=== PATIENT | male | born 1945 | race Caucasian/White ===

== ENCOUNTER 2019-07-09 09:58 | Inpatient (IN) | payer OTHER ==
[2019-07-09] MEDS ORDERED: Enoxaparin Sodium 40 MG/0.4 ML SYRINGE SC SCH (13:36)
[2019-07-09] MEDS ORDERED: Sodium Chloride 0.9% 1,000 ML IV SCH (13:36)
[2019-07-09] MEDS ORDERED: Benzonatate 100 MG CAP PO PRN (13:36)
[2019-07-09] MEDS ORDERED: Ondansetron ODT 4 MG TAB PO PRN (13:36)
[2019-07-09] MEDS ORDERED: Ondansetron PF 4 MG/2 ML Vial IVP PRN (13:36)
[2019-07-09] MEDS: Azithromycin 500 MG in Sodium Chloride 0.9% 250 ML 250 ML IVPB SCH (14:31)
[2019-07-09] MEDS: Ipratropium Oral Inhaler INH SCH ×2 (14:34→22:39)
--- NOTE | 2019-07-09 16:24 | CON ---
DATE OF CONSULTATION: 07/09/2019 REASON FOR CONSULTATION: Possible COVID-19 infection with pneumonia. HISTORY OF PRESENT ILLNESS: This is a 73-year-old male, who presented from the [facility] in [place] with shortness of breath for 3 to 4 days prior to admission. Although, he denies fever. Fever is mentioned in the ER note in the chart. There is no fever documented in the ER with his vital signs. COVID-19 infection has been known to be circulating to the patient's present unit. PAST MEDICAL HISTORY: 1. Stroke in 2013. 2. Hypertension. 3. Hyperlipidemia. 4. COPD. PAST SURGICAL HISTORY: He has had appendectomy. SOCIAL HISTORY: The patient smoked in the past. Does not consume alcohol. Lives in the [facility]. ALLERGIES: NONE. PHYSICAL EXAMINATION: VITAL SIGNS: Temperature 97.6; pulse 83; blood pressure 105/64; and O2 saturation generally in the 90s on 20 L face mask. GENERAL: He is in no acute distress. HEENT: Has a disheveled appearance with a webb. NECK: No adenopathy or JVD. LUNGS: Some inspiratory crackles in the bases. CARDIOVASCULAR: S1 and S2, somewhat irregular. Looks junctional at times. Other times, a CP wave. EXTREMITIES: Without clubbing, cyanosis, or edema. IMAGING DATA: His chest x-ray shows some subtle bibasilar infiltrates. LABORATORY DATA: White blood cell count 9.7, hematocrit 31.1, and platelet count 189. Sodium 130, potassium 4, chloride 100, CO2 of 21, BUN 38, creatinine 2.1, glucose 109, albumin 2.7, AST 43, and ALT 20. CPK 499, troponin 0.09. INR 1.1. ASSESSMENT: Pneumonia, possibly the COVID-19 versus congestive heart failure given high BNP and previous cardiac history. PLAN: 1. Await results of COVID-19 testing. 2. Echocardiogram after the COVID-19 test is back. 3. Convert over to high-flow nasal cannula. Job ID: [id number]
[2019-07-09] MEDS ORDERED: Fluticasone Propionate HFA 110 MCG AER INH SCH (18:30)
--- NOTE | 2019-07-09 19:29 | HP ---
PRIMARY CARE PROVIDER: [facility]. CHIEF COMPLAINT: Shortness of breath. HISTORY OF PRESENT ILLNESS: This is a 73-year-old male, who presents to [facility] in transfer from [facility], where the patient presented with increased shortness of breath and fever up to 100.7 degrees Fahrenheit. The patient received Tylenol x1 gram, in addition was placed on a 100% non-rebreather at 15 L/minute. The patient was initially hypoxic in the 84% range, increasing into the low 90s with a non-rebreather. The patient was placed on respiratory and droplet precautions due to concern for potential COVID exposure. In the emergency room, the patient underwent portable chest x-ray imaging showing multifocal bibasilar infiltrates. The patient received IV Levaquin 750 mg x1 dose in addition to Lovenox 100 mg subcutaneously x1. The patient was subsequently transferred to [facility] directly to the Critical Care Unit. The patient admits to symptoms of increased shortness of breath with productive sputum over the last 3 to 4 days. The patient denied any brandi fever or fever documented prior to admission. No history of travel, but is an inmate in the [email or web address]. The patient denied any dysuria or diarrhea. No sore throat or abdominal discomfort. PAST MEDICAL HISTORY: 1. Hypertension. 2. Chronic obstructive pulmonary disease. 3. Hepatitis C. 4. Anemia on chronic kidney disease. 5. Chronic kidney disease stage 3. 6. History of CVA. 7. Benign prostatic hyperplasia. PAST SURGICAL HISTORY: Status post appendectomy. CURRENT MEDICATIONS: 1. Amlodipine 10 mg p.o. daily. 2. Atenolol 50 mg p.o. daily. 3. Atrovent HFA 17 mcg inhaled daily. 4. Calcium carbonate 500 mg p.o. daily. 5. Plavix 75 mg p.o. daily. 6. Flovent HFA 110 mcg inhaled daily. 7. Lasix 20 mg p.o. daily. 8. Potassium chloride 10 mEq p.o. daily. 9. Pravachol 40 mg p.o. at bedtime. 10. Terazosin 2 mg p.o. daily and 5 mg p.o. at bedtime. ALLERGIES: CEPHALOSPORINS. FAMILY HISTORY: No inheritable diseases per the patient report. SOCIAL HISTORY: Incarcerated in the [email or web address]. No current alcohol, tobacco, or illicit drug use. REVIEW OF SYSTEMS: CONSTITUTIONAL: Negative for weight loss or gain, ability to conduct usual activities. SKIN: Negative for rash, itching. EYES: Negative for double vision, pain. ENT/MOUTH: Negative for nose bleeding, neck stiffness, pain, tenderness. CARDIOVASCULAR: Negative for palpitations, dyspnea on exertion, orthopnea. RESPIRATORY: Negative for shortness of breath, wheezing, cough, hemoptysis, fever or night sweats. GASTROINTESTINAL: Negative for poor appetite, abdominal pain, heartburn, nausea, vomiting, constipation, or diarrhea. GENITOURINARY: Negative for urgency, frequency, dysuria, nocturia. MUSCULOSKELETAL: Negative for pain, swelling. NEUROLOGIC/PSYCHIATRIC: Negative for anxiety, depression. ALLERGY/IMMUNOLOGIC: Negative for skin rash, bleeding tendency. Otherwise negative except as stated per HPI. PHYSICAL EXAMINATION: VITAL SIGNS: Blood pressure 106/64, pulse 88, respiratory rate 33, temperature 97.6 degrees Fahrenheit, and O2 saturation 93% on high-flow nasal cannula. GENERAL APPEARANCE: This is a 73-year-old male, alert, ill-appearing, tachypneic, lying on the bed. HEENT: Pupils are equal, round, and reactive to light and accommodation. Extraocular muscles are intact. No scleral icterus. No conjunctival injection. Nares patent. OP is clear. High-flow nasal cannula in place. NECK: Supple. No cervical adenopathy. No thyromegaly. No carotid bruits. No JVD appreciated. Cervical spine with full active and passive range of motion. No meningeal signs noted. CHEST: Diminished air flow bilaterally with occasional expiratory wheeze and rhonchi. Positive tachypnea and accessory muscle use. ABDOMEN: Obese, soft, nontender, and nondistended. Bowel sounds are positive in all 4 quadrants. There is no hepatosplenomegaly. No abdominal bruits. No rebound or guarding appreciated. EXTREMITIES: Warm and dry with fair turgor. No clubbing, cyanosis, or asymmetric edema appreciated. Pulses palpable distally at the dorsalis pedis, posterior tibial, and popliteal arteries bilaterally. Capillary refill less than 2 seconds. NEUROLOGIC: Cranial nerves 2 through 12 are grossly intact. No focal or lateralizing signs appreciated. PERTINENT LABORATORY AND X-RAY FINDINGS: Metabolic profile; sodium 134, potassium 4.0, chloride 100, CO2 of 21, glucose 109, BUN 38, and creatinine 2.1. Estimated GFR of 33. BNP 1140. CBC showed a white blood cell count of 9.7, hemoglobin 10.4, hematocrit 31, platelet count 189 with normal differential. AST 43, ALT of 20, alkaline phosphatase 48, total CK 499, troponin I 0.09. PT 11.4, INR 1.1. Portable chest x-ray dated on 07/09/2019, showed multifocal bibasilar infiltrates. Telemetry monitoring showed a sinus rhythm with heart rates in the 80s to 90s. ASSESSMENT AND PLAN: 1. Acute hypoxic respiratory failure. The patient will be admitted to the Critical Care Unit. Exact etiology unclear, however, suspicion for COVID-19 remains. Continue high-flow oxygen via nasal cannula and to maintain O2 saturations greater than or equal to 88%. COVID-19 PCR pending. Continue aggressive pulmonary supportive management. Bronchodilator therapy with albuterol metered-dose inhalers. 2. Bilateral pneumonia, suspected due to COVID-19. We will continue respiratory and droplet isolation. Zithromax 500 mg IV daily. Initiate trial of remdesivir with approval from Infectious Disease and Pulmonary Critical Care Service. 3. Chronic obstructive pulmonary disease. Questionable exacerbation due to bilateral pneumonia. We will continue bronchodilator therapy. Oxygen support with high-flow nasal cannula. Continue Zithromax 500 mg IV daily. 4. Acute kidney injury on chronic kidney disease. Avoid nephrotoxic agents and limit contrast exposure. Continue intravenous normal saline at 100 mL/h. Repeat creatinine in the a.m. 5. Hypertension. Relative hypotension currently. Hold home blood pressure regimen and monitor clinical response. 6. Prophylaxis. SCDs while in bed. Pepcid 20 mg p.o. b.i.d. Respiratory and droplet isolation. CODE STATUS: Full. Surrogate medical decision maker not identified. Job ID: [id number]
[2019-07-09] MEDS: Terazosin HCl 5 MG CAP PO SCH (19:51)
[2019-07-09] MEDS: Famotidine/PF 20 mg/2ml Vial SLOW IVP SCH (19:51)
[2019-07-09 20:31] LABS: Actual Bicarbonate (HCO3a) 15.2 mEq/L (22-28); Base Excess (BEa) -6.8 mEq/L (-2.0 to +3.0); Calcium, Ionized 1.07 mmol/L (1.12-1.30); Carboxyhemoglobin (COHb) 0.6 gm% (0.0-3.0); Hemoglobin (Hb) 11.8 g/dL (14.0-18.0); Potassium - ABG Lab 3.96 mmol/L (3.70-5.30); pH, Arterial 7.46 (7.35-7.45)
[2019-07-09 20:33] LABS: CO2 Tension 21.8 mmHg (35.0-45.0); O2 Tension (PaO2), arterial 52.1 mmHg (> 70.0); Puncture Site RRA
[2019-07-09] MEDS ORDERED: Furosemide 40 MG/4 ML VIAL ONE (20:48)
[2019-07-09] MEDS ORDERED: Amiodarone 150 MG, Admixture Fee 1 EACH in Dextrose 5% in Water 100 ML IVPB SCH (21:15)
[2019-07-09] MEDS: Amiodarone 450 MG, Admixture Fee 1 EACH in Dextrose 5% in Water 250 ML IVPB SCH (21:21)
[2019-07-09] MEDS: Acetaminophen 500 MG TAB PO PRN (21:22)
[2019-07-09] MEDS ORDERED: Digoxin 0.5 MG/2 ML AMP ONE (22:22)
[2019-07-09] MEDS ORDERED: Digoxin 0.5 MG/2 ML AMP SLOW IVP SCH (22:30)
[2019-07-09] MEDS: Mometasone 100 MCG/PUFF (1 INHALER) INH SCH (22:39)
[2019-07-09] MEDS ORDERED: Albumin 25% 25 GM/100 ML BOT IVPB SCH (23:59)
[2019-07-10 04:32] LABS: ALT (SGPT) 16 U/L (8-55); AST (SGOT) 32 U/L (5-34); Albumin 3.1 g/dL (3.4-4.8); Alkaline Phosphatase 43 U/L (40-110); Anion Gap 19 mmol/L (10-20); BUN (Urea Nitrogen) 52 mg/dL (8.4-25.7); Bilirubin, Total 0.9 mg/dL (0.2-1.2); Calc. Creatinine Clearance 40 mL/min (70-130); Calcium 7.8 mg/dL (7.8-10.44); Carbon Dioxide 15 mmol/L (23-31); Chloride 106 mmol/L (98-107); Estimated GFR-MDRD 24; Globulin 3.5 g/dL (2.4-3.5); Glucose 139 mg/dL (83-110); Protein, Total 6.6 g/dL (5.8-8.1); Sodium 136 mmol/L (136-145)
[2019-07-10 04:52] LABS: Band 13 % (5-11); Hemoglobin 10.1 g/dL (14.0-18.0); Lymphocytes 30 % (21-51); MDiff Complete? YES; Mean Corpuscular HGB CONC 33.9 g/dL (32.0-36.0); Mean Corpuscular Hemoglobin 31.1 pg (27.0-31.0); Mean Corpuscular Volume 91.8 fL (78.0-98.0); Mean Platelet Volume 10.3 fL (7.4-10.4); Monocytes 1 % (0-10); Neutrophil 56 % (42-75); Platelet Count 133 thou/uL (130-400); Red Blood Cell (RBC) Count 3.26 mill/uL (4.70-6.10); Toxic Granulation SLIGHT; Vacuoles SLIGHT
[2019-07-10] MEDS: Amiodarone 450 MG, Admixture Fee 1 EACH in Dextrose 5% in Water 250 ML IVPB SCH ×2 (05:43→20:15)
--- NOTE | 2019-07-10 06:24 | PDOC.EVN ---
Event Note - Event Note Event Note: Nurse called in regards to pt's tachypnea. Per nursing staff pt had refused intubation at the [facility]. Pt is also in atrial fibillation with rapid ventricular response. I spoke with the pt in details if he does not wear the bipap or if he does not want intubation there is a good chance he will not make it if he continues to be tahcypenic. Pt then stated that he want everything to be done. Also spoke with guard to get pt's family member and they were unable to do until am.
[2019-07-10] MEDS ORDERED: Furosemide 40 MG/4 ML VIAL SLOW IVP SCH (08:15)
--- NOTE | 2019-07-10 08:36 | PRG ---
DATE OF SERVICE: 07/10/2019 TIME SPENT: 35 minutes of critical care time. SUBJECTIVE: The patient went into the atrial fibrillation with rapid ventricular response last night. His rate has been slowed by being placed on amiodarone drip. His hypoxemia worsened last night to the point where he is now on BiPAP therapy. OBJECTIVE: VITAL SIGNS: On exam, his temperature is 98.6, pulse 84, blood pressure 130/69, O2 saturation 96%. A 24-four intake 1166, output 575. HEENT: Unremarkable. NECK: No adenopathy or JVD. LUNGS: Scattered rales. CARDIAC: S1 and S2, now appear sinus. ABDOMEN: Soft. EXTREMITIES: No rashes. LABORATORY DATA: Sodium 136, potassium 4, chloride 106, CO2 of 15, anion gap is 15, BUN 52, creatinine 2.6, and glucose 139. Ferritin 2373. White blood cell count 12, hematocrit 29.9, and platelet count 133. ASSESSMENT: 1. Suspected COVID-19 pneumonia - test result is not back from the [facility]. 2. Possible recurrent heart failure. 3. Septicemia - grew out gram-positive cocci in clusters and gram-negative rods from culture at the [facility]. 4. Renal insufficiency. PLAN: 1. Continue BiPAP. 2. Continue amiodarone. 3. Add vancomycin and Levaquin for sepsis. The patient is allergic to cephalosporins. 4. Await COVID-19 test. If positive, then I would not hesitate to give him plasma, IL-6 inhibitor, and remdesivir if available. Job ID: [id number]
[2019-07-10] MEDS: Ipratropium Oral Inhaler INH SCH ×3 (08:54→17:37)
[2019-07-10] MEDS: Mometasone 100 MCG/PUFF (1 INHALER) INH SCH ×2 (08:54→17:37)
[2019-07-10] MEDS: Clopidogrel Bisulfate 75 MG TAB PO SCH (08:55)
[2019-07-10] MEDS: Amlodipine 10 MG TAB PO SCH (08:55)
[2019-07-10] MEDS: Famotidine/PF 20 mg/2ml Vial SLOW IVP SCH (08:55)
[2019-07-10] MEDS: Potassium Chloride 10 MEQ TAB PO SCH (08:56)
[2019-07-10] MEDS: Terazosin HCl 1 MG CAP PO SCH (08:56)
[2019-07-10] MEDS ORDERED: Furosemide 20 MG TAB PO SCH (09:00)
[2019-07-10] MEDS ORDERED: Non-Formulary Item 1 EACH (Terazosin Hcl [Terazosin Hcl] 2 MG) PO SCH (09:00)
[2019-07-10] MEDS ORDERED: Non-Formulary Item 1 EACH (Potassium Chloride [Potassium Chloride] 10 MEQ) PO SCH (09:00)
[2019-07-10] MEDS: Vancomycin HCl 1.75 GM in Sodium Chloride 0.9% 500 ML IVPB SCH (10:02)
[2019-07-10] MEDS ORDERED: Tocilizumab 400 MG in Sodium Chloride 0.9% 80 ML IV SCH (13:00)
[2019-07-10] MEDS: Azithromycin 500 MG in Sodium Chloride 0.9% 250 ML 250 ML IVPB SCH (13:57)
[2019-07-10] MEDS: Terazosin HCl 5 MG CAP PO SCH (22:17)
[2019-07-11 03:56] LABS: #Lymphocytes 1.3 thou/uL (1.20-3.40); #Monocytes 0.1 thou/uL (0.11-0.59); #Neutrophils 3.2 thou/uL (1.40-6.50); %Basophils 0.5 % (0.0-1.0); %Eosinophils 0.8 % (0.0-10.0); %Lymphocytes 28.5 % (21.0-51.0); %Monocytes 2.7 % (0.0-10.0); %Neutrophils 67.4 % (42.0-75.0); Hemoglobin 10.1 g/dL (14.0-18.0); Mean Corpuscular HGB CONC 33.6 g/dL (32.0-36.0); Mean Corpuscular Hemoglobin 31.4 pg (27.0-31.0); Mean Corpuscular Volume 93.5 fL (78.0-98.0); Mean Platelet Volume 9.8 fL (7.4-10.4); Platelet Count 176 thou/uL (130-400); RBC Distribution Width 15.2 % (11.5-14.5); Red Blood Cell (RBC) Count 3.21 mill/uL (4.70-6.10); White Blood Cell (WBC) Count 4.7 thou/uL (4.8-10.8)
[2019-07-11 04:19] LABS: ALT (SGPT) 17 U/L (8-55); AST (SGOT) 25 U/L (5-34); Alkaline Phosphatase 42 U/L (40-110); Anion Gap 14 mmol/L (10-20); BUN (Urea Nitrogen) 62 mg/dL (8.4-25.7); Bilirubin, Total 0.9 mg/dL (0.2-1.2); Calc. Creatinine Clearance 34 mL/min (70-130); Calcium 8.1 mg/dL (7.8-10.44); Carbon Dioxide 20 mmol/L (23-31); Chloride 108 mmol/L (98-107); Estimated GFR-MDRD 20; Globulin 3.5 g/dL (2.4-3.5); Glucose 116 mg/dL (83-110); Potassium 3.3 mmol/L (3.5-5.1); Protein, Total 6.5 g/dL (5.8-8.1); Sodium 139 mmol/L (136-145)
[2019-07-11] MEDS: Ipratropium Oral Inhaler INH SCH ×5 (06:33→22:30)
[2019-07-11] MEDS: Clopidogrel Bisulfate 75 MG TAB PO SCH (08:30)
[2019-07-11] MEDS: Potassium Chloride 10 MEQ TAB PO SCH (08:30)
[2019-07-11] MEDS: Famotidine/PF 20 mg/2ml Vial SLOW IVP SCH (08:30)
[2019-07-11] MEDS: Amlodipine 10 MG TAB PO SCH (08:31)
[2019-07-11] MEDS: Terazosin HCl 1 MG CAP PO SCH (08:32)
--- NOTE | 2019-07-11 08:34 | PRG ---
DATE OF SERVICE: 07/11/2019 35 minutes critical time. SUBJECTIVE: The patient remains on BiPAP. He is resting comfortably, had no acute complaints. OBJECTIVE: VITAL SIGNS: Temperature 98.1, pulse 87, blood pressure 97/62, O2 saturation 95% on 50% oxygen. Intake 1753, output 1349. HEENT: Unremarkable. NECK: No adenopathy or JVD. CHEST: Coarse rhonchi. CARDIOVASCULAR: S1 and S2. Somewhat irregular. He is on amiodarone drip. ABDOMEN: Soft. EXTREMITIES: No edema. LABORATORY DATA: White blood cell count 4.7, hematocrit 30, and platelet count 176. Sodium 139, potassium 3.3, chloride 108, CO2 of 20, BUN 62, creatinine 3.1, glucose 116. His x-ray shows continued bilateral infiltrates, although there seems to be some clearing compared to before. ASSESSMENT: 1. COVID-19 with pneumonia. 2. Acute respiratory failure requiring mechanical ventilation. 3. Worsening renal dysfunction. 4. Atrial fibrillation. PLAN: 1. Hold the Lasix for the current time. 2. Given the duration of atrial fibrillation and his concurrent COVID-19 infection, I will go ahead and anticoagulate the patient. 3. Decrease IPAP pressure. 4. He has received plasma and IL-6 inhibitor. He is not a candidate for remdesivir due to his renal dysfunction. Job ID: [id number]
[2019-07-11] MEDS: Apixaban 5 MG TAB PO SCH ×2 (08:35→20:37)
[2019-07-11] MEDS: Amiodarone 450 MG, Admixture Fee 1 EACH in Dextrose 5% in Water 250 ML IVPB SCH (10:17)
--- NOTE | 2019-07-11 11:07 | RAD ---
SINGLE VIEW OF THE CHEST: COMPARISON: 07/09/2019. HISTORY: Pneumonia. FINDINGS: A single view of the chest shows a normal-size cardiomediastinal silhouette. Increased interstitial lung markings are present. There are questionable [id number] infiltrates in the bilateral lower lob es. Small bilateral pleural effusions may also be present. IMPRESSION: Bilateral small pleural effusions and bilateral lower lobe infiltrates. POS: EAA
[2019-07-11] MEDS: Vancomycin HCl 1.75 GM in Sodium Chloride 0.9% 500 ML IVPB SCH (11:32)
--- NOTE | 2019-07-11 14:51 | PDOC.HOSPP ---
- Subjective Encounter Date: 07/11/19 Encounter Time: 14:45 Subjective: f/u for COVID-19 PNA on BiPAP NIMV receiving Levaquin/Vanc/Zithromax/ Solumedrol. States feeling a little better this afternoon. - Objective Vital Signs & Weight: Vital Signs (12 hours) Pulse Resp Pulse Ox 07/11/19 11:03 82 36 H 90 L 07/11/19 11:02 81 31 H 90 L 07/11/19 08:31 66 07/11/19 08:00 97 07/11/19 07:25 88 95 Weight Weight 246 lb 7.629 oz Most Recent Monitor Data Heart Rate from ECG 83 NIBP 106/56 NIBP BP-Mean 72 Respiration from ECG 34 SpO2 89 I&O: 07/10/19 07/11/19 07/12/19 06:59 06:59 06:59 Intake Total 1166 1753 620 Output Total 575 1349 485 Balance 591 404 135 Result Diagrams: 07/11/19 03:45 07/11/19 03:45 Additional Labs: Microbiology 07/09/19 07:45 Venous blood - Right Arm Blood Culture - Preliminary Coagulase Neg Staphylococcus Laboratory Tests 07/10/19 07/10/19 07/10/19 03:59 03:59 03:59 WBC 12.0 H Hgb 10.1 L Band Neuts % (Manual) 13 H D-Dimer BUN 52 H Creatinine 2.66 H Ferritin 2373.03 H B-Natriuretic Peptide 07/10/19 07/10/19 03:59 05:57 WBC Hgb Band Neuts % (Manual) D-Dimer 2.08 H BUN Creatinine Ferritin B-Natriuretic Peptide 242.2 H Radiology Reviewed by me: Yes (PCXR - bilat infiltrates) EKG Reviewed by me: Yes (Tele - A-fib in 80's) Hospitalist ROS - Medication Medications: Active Medications Generic Name Dose Route Start Last Admin Trade Name Freq PRN Reason Stop Dose Admin Acetaminophen 1,000 mg 07/09/19 13:36 07/09/19 21:22 Tylenol PO 1,000 mg Q6H PRN Administration Mild Pain (1-3) Amlodipine Besylate 10 mg 07/10/19 09:00 07/11/19 08:31 Norvasc PO 10 mg DAILY CORNELIO Administration Apixaban 5 mg 07/11/19 09:00 07/11/19 08:35 Eliquis PO 5 mg BID CORNELIO Administration Clopidogrel Bisulfate 75 mg 07/10/19 09:00 07/11/19 08:30 Plavix PO 75 mg DAILY CORNELIO Administration Famotidine 20 mg 07/11/19 09:00 07/11/19 08:30 Pepcid SLOW IVP 20 mg DAILY CORNELIO Administration Azithromycin 500 mg/ Sodium 250 mls @ 250 mls/hr 07/09/19 15:00 07/10/19 13: 57 Chloride IVPB 250 mls Q24HR CORNELIO Administration Amiodarone HCl 450 mg/ 259 mls @ 0 mls/hr 07/09/19 21:15 07/11/19 10:17 Miscellaneous Medication 1 IVPB 259 mls each/ Dextrose/Water INF CORNELIO Administration Protocol As Directed Levofloxacin 500 mg/ Device 100 mls @ 100 mls/hr 07/10/19 09:00 07/10/19 08: 59 IVPB 100 mls Q2D@0900 CORNELIO Administration Vancomycin HCl 1.75 gm/ Sodium 500 mls @ 250 mls/hr 07/10/19 10:00 07/11/19 11:32 Chloride IVPB 500 mls 1000 CORENLIO Administration Ipratropium [place] 2 puff 07/09/19 15:00 07/11/19 11:03 Atrovent Hfa INH 2 puff QID-RT CORNELIO Administration Mometasone Furoate 100 mcg 07/09/19 18:30 07/10/19 17:37 Asmanex Hfa 100 Mcg INH Not Given BID-RT CORNELIO Potassium Chloride 10 meq 07/10/19 09:00 07/11/19 08:30 Klor-Con 10 PO 10 meq DAILY CORNELIO Administration Sodium Chloride 10 ml 07/09/19 21:00 07/11/19 08:32 Flush - Normal Saline IVF 10 ml Q12HR CORNELIO Administration Terazosin HCl 5 mg 07/09/19 21:00 07/10/19 22:17 Hytrin PO 5 mg HS CORNELIO Administration Terazosin HCl 2 mg 07/10/19 09:00 07/11/19 08:32 Hytrin PO 2 mg QAM CORNELIO Administration - Exam General Appearance: awake alert General - other findings: dyspneic Eye: PERRL, anicteric sclera ENT: normocephalic atraumatic, no oropharyngeal lesions Neck: supple, symmetric, no JVD, no thyromegaly Heart: no gallops, no rubs, normal peripheral pulses, irregular Heart - other findings: S1, S2 Respiratory: tachypneic Respiratory - other findings: diminished in bases Gastrointestinal: soft, non-tender, non-distended, normal bowel sounds, no palpable masses Gastrointestinal - other findings: obese Extremities: no cyanosis, no clubbing, 1+ LE edema Skin: normal turgor, no lesions Neurological: cranial nerve grossly intact, no new deficit Musculoskeletal: normal tone, generalized weakness Psychiatric: normal affect, A&O x 3 Hosp A/P (1) Pneumonia due to COVID-19 virus Code(s): U07.1 - COVID-19; J12.89 - OTHER VIRAL PNEUMONIA Status: Acute Plan: Continue BiPAP NIMV, s/p plasma and IL-6 inhibitor, continue Zithromax/Levaquin/ Vancomycin (2) Acute respiratory failure with hypoxia Code(s): J96.01 - ACUTE RESPIRATORY FAILURE WITH HYPOXIA Status: Acute Plan: BiPAP NIMV, bronchodilators, Solumedrol (3) Acute kidney injury superimposed on CKD Code(s): N17.9 - ACUTE KIDNEY FAILURE, UNSPECIFIED; N18.9 - CHRONIC KIDNEY DISEASE, UNSPECIFIED Status: Acute Plan: Worsening renal function, avoid nephrotoxic meds and limit contrast (4) HTN (hypertension) Code(s): I10 - ESSENTIAL (PRIMARY) HYPERTENSION Status: Chronic Qualifiers: Hypertension type: essential hypertension Qualified Code(s): I10 - Essential (primary) hypertension - Plan continue antibiotics, social worker palliative care, respiratory therapy, DVT proph w/SCDs Continue pulmonary support BiPAP NIMV @ 45% FIO2 Albuterol MDI Continue Zithromax/Levaquin/Vancomycin Continue Solumedrol Clear liquids AM lab: CMP, CBC
[2019-07-11] MEDS: Azithromycin 500 MG in Sodium Chloride 0.9% 250 ML 250 ML IVPB SCH (15:10)
[2019-07-11] MEDS: methylPREDNISolone Sod Succ 40 MG VIAL IVP SCH ×2 (15:10→17:45)
[2019-07-11] MEDS: Terazosin HCl 5 MG CAP PO SCH (20:37)
[2019-07-11] MEDS: Mometasone 100 MCG/PUFF (1 INHALER) INH SCH ×2 (21:53→22:30)
[2019-07-12] MEDS: methylPREDNISolone Sod Succ 40 MG VIAL IVP SCH ×5 (00:40→23:58)
[2019-07-12 04:13] LABS: #Lymphocytes 1.3 thou/uL (1.20-3.40); #Monocytes 0.1 thou/uL (0.11-0.59); #Neutrophils 3.9 thou/uL (1.40-6.50); %Basophils 0.6 % (0.0-1.0); %Eosinophils 0.2 % (0.0-10.0); %Lymphocytes 23.4 % (21.0-51.0); %Monocytes 2.5 % (0.0-10.0); %Neutrophils 73.3 % (42.0-75.0); Hemoglobin 10.5 g/dL (14.0-18.0); Mean Corpuscular Hemoglobin 30.2 pg (27.0-31.0); Mean Corpuscular Volume 94.4 fL (78.0-98.0); Mean Platelet Volume 10.1 fL (7.4-10.4); Platelet Count 191 thou/uL (130-400); RBC Distribution Width 15.4 % (11.5-14.5); Red Blood Cell (RBC) Count 3.48 mill/uL (4.70-6.10); White Blood Cell (WBC) Count 5.4 thou/uL (4.8-10.8)
[2019-07-12 04:34] LABS: ALT (SGPT) 17 U/L (8-55); AST (SGOT) 20 U/L (5-34); Albumin 2.8 g/dL (3.4-4.8); Alkaline Phosphatase 45 U/L (40-110); Anion Gap 14 mmol/L (10-20); BUN (Urea Nitrogen) 72 mg/dL (8.4-25.7); Bilirubin, Total 0.7 mg/dL (0.2-1.2); Calc. Creatinine Clearance 38 mL/min (70-130); Calcium 8.1 mg/dL (7.8-10.44); Carbon Dioxide 18 mmol/L (23-31); Chloride 109 mmol/L (98-107); Estimated GFR-MDRD 22; Globulin 3.3 g/dL (2.4-3.5); Glucose 182 mg/dL (83-110); Potassium 3.6 mmol/L (3.5-5.1); Protein, Total 6.1 g/dL (5.8-8.1); Sodium 137 mmol/L (136-145)
[2019-07-12] MEDS: Mometasone 100 MCG/PUFF (1 INHALER) INH SCH ×3 (07:30→18:46)
[2019-07-12] MEDS: Potassium Chloride 10 MEQ TAB PO SCH (08:12)
[2019-07-12] MEDS: Ipratropium Oral Inhaler INH SCH ×4 (08:12→18:15)
[2019-07-12] MEDS: Clopidogrel Bisulfate 75 MG TAB PO SCH (08:12)
[2019-07-12] MEDS: Amlodipine 10 MG TAB PO SCH (08:12)
[2019-07-12] MEDS: Famotidine/PF 20 mg/2ml Vial SLOW IVP SCH (08:12)
[2019-07-12] MEDS: Apixaban 5 MG TAB PO SCH ×2 (08:12→21:18)
[2019-07-12] MEDS: Terazosin HCl 1 MG CAP PO SCH (08:15)
--- NOTE | 2019-07-12 08:42 | PRG ---
DATE OF SERVICE: 07/12/2019 35 minutes of critical care time. SUBJECTIVE: This patient remains on BiPAP in the CCU. He has actually been doing a little better. OBJECTIVE: VITAL SIGNS: His temperature is 98.7, pulse 77, blood pressure 117/65, O2 saturation generally running in the mid to high 90s. Intake 1649, output 1100. HEENT: Exam is unremarkable. NECK: No adenopathy or JVD. LUNGS: He has scattered crackles. CARDIAC: S1 and S2. Regular. ABDOMEN: Soft. EXTREMITIES: No edema. LABORATORY DATA: Sodium 137, potassium 3.6, chloride 109, CO2 of 18, BUN 72, creatinine 2.8, glucose 182, albumin 2.8. White blood cell count 5.4, hematocrit 32.8, and platelet count 191. His x-ray is stable. ASSESSMENT: 1. COVID-19 pneumonia. 2. Acute hypoxic respiratory failure, requiring mechanical ventilation. 3. Renal dysfunction, slightly improved. 4. Atrial fibrillation. PLAN: The patient has received IL-6 inhibitor, convalescent serum, and corticosteroids. He has improved somewhat. We will try to wean him down to a high-flow nasal cannula today. He was not a candidate for remdesivir due to renal dysfunction. He needs to remain in the ICU, but certainly would be a candidate for transfer to [facility] should a bed become available. Job ID: [id number]
--- NOTE | 2019-07-12 09:52 | RAD ---
CHEST 1 VIEW: INDICATION: History of pneumonia. COMPARISON: Prior exam dated 07/11/2019. IMPRESSION: Bilateral airspace disease and mild cardiomegaly is stable-appearing. No pneumothorax is evident. L eft costophrenic angle is excluded. Tiny right pleural effusion remains. POS: [facility]DI
[2019-07-12 10:03] LABS: Vancomycin, Trough 19.3 ug/mL
[2019-07-12] MEDS: Azithromycin 500 MG in Sodium Chloride 0.9% 250 ML 250 ML IVPB SCH (14:21)
[2019-07-12] MEDS: Terazosin HCl 5 MG CAP PO SCH (21:18)
[2019-07-13 04:37] LABS: #Basophils 0.1 thou/uL (0.0-0.2); #Monocytes 0.3 thou/uL (0.11-0.59); #Neutrophils 6.7 thou/uL (1.40-6.50); %Basophils 0.8 % (0.0-1.0); %Eosinophils 0.1 % (0.0-10.0); %Lymphocytes 12.6 % (21.0-51.0); %Monocytes 4.2 % (0.0-10.0); %Neutrophils 82.4 % (42.0-75.0); Hemoglobin 9.8 g/dL (14.0-18.0); Mean Corpuscular HGB CONC 32.6 g/dL (32.0-36.0); Mean Corpuscular Hemoglobin 30.4 pg (27.0-31.0); Mean Corpuscular Volume 93.2 fL (78.0-98.0); Mean Platelet Volume 9.9 fL (7.4-10.4); Platelet Count 208 thou/uL (130-400); RBC Distribution Width 15.4 % (11.5-14.5); Red Blood Cell (RBC) Count 3.23 mill/uL (4.70-6.10); White Blood Cell (WBC) Count 8.1 thou/uL (4.8-10.8)
[2019-07-13 04:58] LABS: ALT (SGPT) 17 U/L (8-55); AST (SGOT) 15 U/L (5-34); Albumin 2.9 g/dL (3.4-4.8); Alkaline Phosphatase 52 U/L (40-110); Anion Gap 12 mmol/L (10-20); BUN (Urea Nitrogen) 77 mg/dL (8.4-25.7); Bilirubin, Total 0.7 mg/dL (0.2-1.2); Calc. Creatinine Clearance 36 mL/min (70-130); Calcium 8.1 mg/dL (7.8-10.44); Carbon Dioxide 22 mmol/L (23-31); Chloride 109 mmol/L (98-107); Estimated GFR-MDRD 21; Globulin 3.3 g/dL (2.4-3.5); Glucose 200 mg/dL (83-110); Potassium 3.6 mmol/L (3.5-5.1); Protein, Total 6.2 g/dL (5.8-8.1); Sodium 139 mmol/L (136-145)
[2019-07-13] MEDS: methylPREDNISolone Sod Succ 40 MG VIAL IVP SCH ×4 (05:32→22:54)
[2019-07-13] MEDS: Amiodarone 450 MG, Admixture Fee 1 EACH in Dextrose 5% in Water 250 ML IVPB SCH ×2 (06:18→20:37)
[2019-07-13] MEDS: Ipratropium Oral Inhaler INH SCH ×4 (07:22→19:04)
[2019-07-13] MEDS: Mometasone 100 MCG/PUFF (1 INHALER) INH SCH ×2 (07:23→19:04)
[2019-07-13 07:24] LABS: Actual Bicarbonate (HCO3a) 20.2 mEq/L (22-28); Base Excess (BEa) -3.3 mEq/L (-2.0 to +3.0); CO2 Tension 31.6 mmHg (35.0-45.0); Calcium, Ionized 1.16 mmol/L (1.12-1.30); Carboxyhemoglobin (COHb) 0.5 gm% (0.0-3.0); Hemoglobin (Hb) 11.6 g/dL (14.0-18.0); O2 Tension (PaO2), arterial 60.2 mmHg (> 70.0); Potassium - ABG Lab 3.51 mmol/L (3.70-5.30); pH, Arterial 7.42 (7.35-7.45)
[2019-07-13] MEDS: Terazosin HCl 1 MG CAP PO SCH (09:00)
[2019-07-13] MEDS: Amlodipine 10 MG TAB PO SCH (09:01)
[2019-07-13] MEDS: Apixaban 5 MG TAB PO SCH ×2 (09:01→20:33)
[2019-07-13] MEDS: Potassium Chloride 10 MEQ TAB PO SCH (09:02)
[2019-07-13] MEDS: Clopidogrel Bisulfate 75 MG TAB PO SCH (09:02)
[2019-07-13] MEDS: Famotidine/PF 20 mg/2ml Vial SLOW IVP SCH (09:02)
[2019-07-13] MEDS ORDERED: Lorazepam 2 MG/ML VIAL SLOW IVP PRN (09:41)
[2019-07-13] MEDS ORDERED: Ziprasidone 20 MG VIAL IM PRN (09:42)
[2019-07-13] MEDS ORDERED: Lorazepam 2 MG/ML VIAL ONE (10:11)
--- NOTE | 2019-07-13 10:12 | PRG ---
DATE OF SERVICE: 07/13/2019 SUBJECTIVE: The patient seems to be doing well except for confusion. He was back on the BiPAP last night mainly because they could not keep the high-flow nasal cannula on the patient. OBJECTIVE: VITAL SIGNS: Temperature 97.2, O2 saturation running in the mid 90s, heart rate 81, and blood pressure 117/67. HEENT: Unremarkable. NECK: No JVD. CHEST: His chest is clear anteriorly. CARDIAC: S1 and S2, regular. ABDOMEN: Soft. EXTREMITIES: No edema. DIAGNOSTIC DATA: His chest x-ray shows bilateral infiltrates with more prominent features on the left, probably not much changed from previous x-ray. LABORATORY DATA: White blood cell count 8.1, hematocrit 30, and platelet count 208. Sodium 139, potassium 3.6, chloride 109, CO2 of 22, BUN 77, creatinine 2.9, glucose 200, and albumin 2.9. ASSESSMENT: 1. COVID-19 pneumonia with acute hypoxic respiratory failure. 2. Metabolic encephalopathy. 3. Renal dysfunction - stable. 4. Atrial fibrillation. PLAN: 1. Alternate BiPAP high-flow oxygen as needed. Hopefully, we can avoid intubation. 2. Continue anticoagulation. 3. The patient has received IL-6 inhibitor, convalescent serum, and corticosteroids. He is not a candidate for remdesivir because of his oxygenation issues and his renal dysfunction. Job ID: [id number]
--- NOTE | 2019-07-13 10:27 | RAD ---
PORTABLE CHEST: HISTORY: Respiratory distress. COMPARISON: Prior day's study. FINDINGS: Heart size and mediastinum are within normal limits. The patchy infiltrates are stable. IMPRESSION: Stable exam. POS: [facility]
[2019-07-13] MEDS ORDERED: Sterile Water 0 ML ONE (10:29)
[2019-07-13] MEDS ORDERED: Sterile Water 10 ML ONE (10:38)
[2019-07-13 14:26] LABS: Puncture Site RRA
[2019-07-13] MEDS: Azithromycin 500 MG in Sodium Chloride 0.9% 250 ML 250 ML IVPB SCH (15:50)
--- NOTE | 2019-07-13 16:45 | PDOC.HOSPP ---
- Subjective Encounter Date: 07/13/19 Encounter Time: 16:45 Subjective: f/u for COVID PNA/Resp failure on high-flow O2/BiPAP NIMV. Received convalescent plasma/IL-6 inhibitor/Solumedrol/Zithromax. - Objective Vital Signs & Weight: Vital Signs (12 hours) Temp Pulse BP 07/13/19 12:00 98.0 F 07/13/19 10:33 105 H 07/13/19 09:01 101 H 133/80 07/13/19 08:00 97.2 F L 07/13/19 07:23 99 Weight Weight 246 lb 7.629 oz Most Recent Monitor Data Heart Rate from ECG 74 NIBP 128/66 NIBP BP-Mean 86 Respiration from ECG 28 SpO2 91 I&O: 07/12/19 07/13/19 07/14/19 06:59 06:59 06:59 Intake Total 1649 2300 Output Total 1100 1225 405 Balance 549 1075 -405 Result Diagrams: 07/13/19 04:20 07/13/19 04:20 Radiology Reviewed by me: Yes (PCXR - bilat infiltrates) EKG Reviewed by me: Yes (Tele - SR) Hospitalist ROS - Medication Medications: Active Medications Generic Name Dose Route Start Last Admin Trade Name Freq PRN Reason Stop Dose Admin Acetaminophen 1,000 mg 07/09/19 13:36 07/09/19 21:22 Tylenol PO 1,000 mg Q6H PRN Administration Mild Pain (1-3) Amlodipine Besylate 10 mg 07/10/19 09:00 07/13/19 09:01 Norvasc PO 10 mg DAILY CORNELIO Administration Apixaban 5 mg 07/11/19 09:00 07/13/19 09:01 Eliquis PO 5 mg BID CORNELIO Administration Clopidogrel Bisulfate 75 mg 07/10/19 09:00 07/13/19 09:02 Plavix PO 75 mg DAILY CORNELIO Administration Famotidine 20 mg 07/11/19 09:00 07/13/19 09:02 Pepcid SLOW IVP 20 mg DAILY CORNELIO Administration Azithromycin 500 mg/ Sodium 250 mls @ 250 mls/hr 07/09/19 15:00 07/12/19 14: 21 Chloride IVPB 250 mls Q24HR CORNELIO Administration Amiodarone HCl 450 mg/ 259 mls @ 0 mls/hr 07/09/19 21:15 07/13/19 06:18 Miscellaneous Medication 1 IVPB 259 mls each/ Dextrose/Water INF CORNELIO Administration Protocol As Directed Ipratropium [place] 2 puff 07/09/19 15:00 07/13/19 10:54 Atrovent Hfa INH 2 puff QID-RT CORNELIO Administration Methylprednisolone Sodium Succinate 20 mg 07/11/19 12:00 07/13/19 11:38 Solu-Medrol IVP 20 mg Q6HR CORNELIO Administration Mometasone Furoate 100 mcg 07/09/19 18:30 07/13/19 07:23 Asmanex Hfa 100 Mcg INH 100 mcg BID-RT CORNELIO Administration Potassium Chloride 10 meq 07/10/19 09:00 07/13/19 09:02 Klor-Con 10 PO 10 meq DAILY CORNELIO Administration Sodium Chloride 10 ml 07/09/19 21:00 07/13/19 09:02 Flush - Normal Saline IVF 10 ml Q12HR CORNELIO Administration Terazosin HCl 5 mg 07/09/19 21:00 07/12/19 21:18 Hytrin PO 5 mg HS CORNELIO Administration Terazosin HCl 2 mg 07/10/19 09:00 07/13/19 09:00 Hytrin PO 2 mg QAM CORNELIO Administration Ziprasidone 20 mg 07/13/19 09:42 07/13/19 10:39 Geodon IM 20 mg Q4H PRN Administration Agitation - Exam General Appearance: NAD General - other findings: lethargic Eye: PERRL, anicteric sclera ENT: normocephalic atraumatic, no oropharyngeal lesions Neck: supple, symmetric, no JVD, no thyromegaly Heart: RRR, no gallops, no rubs, normal peripheral pulses Heart - other findings: S1, S2 Respiratory: no wheezes, tachypneic Respiratory - other findings: diminished bilat bases Gastrointestinal: soft, non-tender, non-distended, normal bowel sounds Gastrointestinal - other findings: obese Extremities: no cyanosis, no clubbing Skin: normal turgor Neurological: cranial nerve grossly intact, no new deficit Musculoskeletal: generalized weakness Psychiatric: oriented to person, oriented to place, somnolent Hosp A/P (1) Pneumonia due to COVID-19 virus Code(s): U07.1 - COVID-19; J12.89 - OTHER VIRAL PNEUMONIA Status: Acute Plan: Continue Zithromax/Solumedrol/O2 support with BiPAP/high-flow O2, isolation protocol (2) Acute respiratory failure with hypoxia Code(s): J96.01 - ACUTE RESPIRATORY FAILURE WITH HYPOXIA Status: Acute Plan: Continue pulmonary supportive mgmt, high-flow NC augmented with BiPAP (3) Acute kidney injury superimposed on CKD Code(s): N17.9 - ACUTE KIDNEY FAILURE, UNSPECIFIED; N18.9 - CHRONIC KIDNEY DISEASE, UNSPECIFIED Status: Acute Plan: Stable currently, continue serial creatinine, avoid nephrotoxic meds and limit contrast exposure (4) HTN (hypertension) Code(s): I10 - ESSENTIAL (PRIMARY) HYPERTENSION Status: Chronic Qualifiers: Hypertension type: essential hypertension Qualified Code(s): I10 - Essential (primary) hypertension - Plan continue antibiotics, social worker masters, respiratory therapy, DVT proph w/SCDs Continue pulmonary support BiPAP NIMV @ 60% FIO2 Albuterol MDI Continue Zithromax Continue Solumedrol Regular diet AM lab: CMP, CBC PCXR in am
[2019-07-13] MEDS: Terazosin HCl 5 MG CAP PO SCH (20:33)
[2019-07-14 03:52] LABS: #Lymphocytes 0.6 thou/uL (1.20-3.40); #Monocytes 0.3 thou/uL (0.11-0.59); #Neutrophils 5.3 thou/uL (1.40-6.50); %Basophils 0.3 % (0.0-1.0); %Eosinophils 0.3 % (0.0-10.0); %Lymphocytes 10.1 % (21.0-51.0); %Monocytes 4.1 % (0.0-10.0); %Neutrophils 85.2 % (42.0-75.0); Hemoglobin 10.5 g/dL (14.0-18.0); Mean Corpuscular Hemoglobin 30.9 pg (27.0-31.0); Mean Corpuscular Volume 93.8 fL (78.0-98.0); Mean Platelet Volume 9.8 fL (7.4-10.4); Platelet Count 214 thou/uL (130-400); RBC Distribution Width 15.3 % (11.5-14.5); White Blood Cell (WBC) Count 6.2 thou/uL (4.8-10.8)
[2019-07-14 04:27] LABS: ALT (SGPT) 14 U/L (8-55); AST (SGOT) 13 U/L (5-34); Alkaline Phosphatase 54 U/L (40-110); Anion Gap 12 mmol/L (10-20); BUN (Urea Nitrogen) 74 mg/dL (8.4-25.7); Bilirubin, Total 0.9 mg/dL (0.2-1.2); Calc. Creatinine Clearance 44 mL/min (70-130); Calcium 8.3 mg/dL (7.8-10.44); Carbon Dioxide 23 mmol/L (23-31); Chloride 111 mmol/L (98-107); Estimated GFR-MDRD 27; Globulin 3.3 g/dL (2.4-3.5); Glucose 198 mg/dL (83-110); Potassium 4.2 mmol/L (3.5-5.1); Protein, Total 6.3 g/dL (5.8-8.1); Sodium 142 mmol/L (136-145)
[2019-07-14] MEDS: Mometasone 100 MCG/PUFF (1 INHALER) INH SCH ×2 (06:50→18:57)
[2019-07-14] MEDS: methylPREDNISolone Sod Succ 40 MG VIAL IVP SCH ×4 (06:50→23:40)
[2019-07-14] MEDS: Ipratropium Oral Inhaler INH SCH ×4 (08:02→18:56)
[2019-07-14] MEDS ORDERED: Dextrose 5% in Water 1,000 ML IV PRN (08:09)
[2019-07-14] MEDS ORDERED: Dextrose 50% Abboject 50 ML SYRINGE SLOW IVP PRN (08:09)
[2019-07-14] MEDS ORDERED: Furosemide 40 MG/4 ML VIAL SLOW IVP SCH (08:15)
--- NOTE | 2019-07-14 08:37 | PRG ---
DATE OF SERVICE: 07/14/2019 TIME SPENT: 35 minutes of critical care time. SUBJECTIVE: The patient remains on BiPAP. His mental status has been better on the Precedex. OBJECTIVE: VITAL SIGNS: Temperature 96.3, pulse 62, and blood pressure 106/74. Total intake 2300, output 1225. HEENT: Unremarkable. NECK: No adenopathy or JVD. LUNGS: Clear anteriorly. CARDIAC: S1, S2. Slightly bradycardic. ABDOMEN: Soft. EXTREMITIES: No edema. LABORATORY DATA: White blood cell count 6.2, hematocrit 31.9, and platelet count 214. Sodium 142, potassium 4.2, chloride 111, CO2 of 23, BUN 74, creatinine 2.3, and glucose 198. ASSESSMENT: 1. COVID-19 with pneumonia. 2. Slightly improved chest radiograph compared to yesterday. 3. Probable underlying cardiac issues including congestive heart failure. PLAN: Because he has poor nutritional support, I will go ahead and put him on some low-dose D5. That will probably require additional diuresis at some point. We will follow. Job ID: [id number]
[2019-07-14] MEDS: Terazosin HCl 1 MG CAP PO SCH ×2 (08:42→09:25)
[2019-07-14] MEDS: Amlodipine 10 MG TAB PO SCH ×2 (08:42→09:24)
[2019-07-14] MEDS: Clopidogrel Bisulfate 75 MG TAB PO SCH ×2 (08:42→09:25)
[2019-07-14] MEDS: Apixaban 5 MG TAB PO SCH ×3 (08:43→19:33)
[2019-07-14] MEDS: Potassium Chloride 10 MEQ TAB PO SCH ×2 (08:43→09:25)
[2019-07-14] MEDS: Famotidine/PF 20 mg/2ml Vial SLOW IVP SCH (08:44)
[2019-07-14] MEDS: Dextrose 5% in Water 1,000 ML IV SCH ×2 (08:48→23:44)
--- NOTE | 2019-07-14 09:01 | RAD ---
PORTABLE CHEST ONE VIEW: 07/14/2019 4:46 a.m. HISTORY: Pneumonia. Positive COVID test results. COMPARISON: 07/13/2019 FINDINGS: The heart size is normal. There are patchy infiltrates in the lower lung dai. No pneumothoraces or large effusions are seen. POS: OFF
[2019-07-14] MEDS: Insulin Regular 300 UNITS/3 ML VIAL SC PRN ×3 (13:01→23:40)
--- NOTE | 2019-07-14 17:02 | PDOC.HOSPP ---
- Subjective Subjective: Seen and examined. Patient's breathing status is tenuous on BiPAP. He is agitated at times, though improved with precedex. Patient's last fever was on at 102.1. He is clinically improving to maximal medical therapy, though still critically ill secondary to Covid 19. Discussed case with nursing staff, appreciated input. - Objective Vital Signs & Weight: Vital Signs (12 hours) Temp Pulse Resp BP Pulse Ox 07/14/19 14:49 64 07/14/19 12:05 28 H 96 07/14/19 12:00 98.1 F 07/14/19 11:07 70 07/14/19 09:24 62 120/67 07/14/19 08:02 62 Weight Weight 246 lb 7.629 oz Most Recent Monitor Data Heart Rate from ECG 59 NIBP 117/60 NIBP BP-Mean 79 Respiration from ECG 27 SpO2 94 I&O: 07/13/19 07/14/19 07/15/19 06:59 06:59 06:59 Intake Total 2300 428.6 Output Total 1225 1230 1340 Balance 1075 -801.4 -1340 Result Diagrams: 07/14/19 03:45 07/14/19 03:45 Additional Labs: Accuchecks 07/14/19 12:42 POC Glucose 194 H Radiology Reviewed by me: Yes Hospitalist ROS - Review of Systems All other systems reviewed; all pertinent +/- noted in HPI/Subj - Medication Medications: Active Medications Generic Name Dose Route Start Last Admin Trade Name Freq PRN Reason Stop Dose Admin Acetaminophen 1,000 mg 07/09/19 13:36 07/09/19 21:22 Tylenol PO 1,000 mg Q6H PRN Administration Mild Pain (1-3) Amlodipine Besylate 10 mg 07/10/19 09:00 07/14/19 09:24 Norvasc PO Not Given DAILY CORNELIO Apixaban 5 mg 07/11/19 09:00 07/14/19 09:25 Eliquis PO Not Given BID CORNELIO Clopidogrel Bisulfate 75 mg 07/10/19 09:00 07/14/19 09:25 Plavix PO Not Given DAILY CORNELIO Famotidine 20 mg 07/11/19 09:00 07/14/19 08:44 Pepcid SLOW IVP 20 mg DAILY CORNELIO Administration Amiodarone HCl 450 mg/ 259 mls @ 0 mls/hr 07/09/19 21:15 07/13/19 20:37 Miscellaneous Medication 1 IVPB 259 mls each/ Dextrose/Water INF CORNELIO Administration Protocol As Directed Dexmedetomidine HCl 400 mcg/ 100 mls @ 0 mls/hr 07/13/19 20:45 07/13/19 20:45 Sodium Chloride IVPB 100 mls INF CORNELIO Administration Protocol Per Protocol Dextrose/Water 1,000 mls @ 50 mls/hr 07/14/19 08:15 07/14/19 08:48 D5w IV 1,000 mls .Q20H CORNELIO Administration Insulin Human Regular 0 units 07/14/19 08:09 07/14/19 13:01 Humulin R SC 2 unit .MODERATE SLIDING SC PRN Administration Moderate Correctional Scale Ipratropium [place] 2 puff 07/09/19 15:00 07/14/19 14:49 Atrovent Hfa INH Not Given QID-RT CORNELIO Methylprednisolone Sodium Succinate 20 mg 07/11/19 12:00 07/14/19 12:05 Solu-Medrol IVP 20 mg Q6HR CORNELIO Administration Mometasone Furoate 100 mcg 07/09/19 18:30 07/14/19 06:50 Asmanex Hfa 100 Mcg INH 100 mcg BID-RT CORNELIO Administration Potassium Chloride 10 meq 07/10/19 09:00 07/14/19 09:25 Klor-Con 10 PO Not Given DAILY CORNELIO Sodium Chloride 10 ml 07/09/19 21:00 07/14/19 08:43 Flush - Normal Saline IVF 10 ml Q12HR CORNELIO Administration Terazosin HCl 5 mg 07/09/19 21:00 07/13/19 20:33 Hytrin PO 5 mg HS CORNELIO Administration Terazosin HCl 2 mg 07/10/19 09:00 07/14/19 09:25 Hytrin PO Not Given QAM CORNELIO Ziprasidone 20 mg 07/13/19 09:42 07/13/19 10:39 Geodon IM 20 mg Q4H PRN Administration Agitation - Exam General Appearance: ill appearing Eye: PERRL ENT: moist mucosa Neck: supple, symmetric Heart: no murmur, no gallops, no rubs Respiratory: rhonchi, tachypneic, wheezes Respiratory - other findings: rapid short and shallow breaths Gastrointestinal: soft, non-tender, no guarding, no rigidity Skin: no lesions, no rashes Neurological: cranial nerve grossly intact, no focal deficits Musculoskeletal: generalized weakness Psychiatric: not oriented, somnolent Hosp A/P (1) Sepsis Code(s): A41.9 - SEPSIS, UNSPECIFIED ORGANISM Status: Acute (2) AMS (altered mental status) Code(s): R41.82 - ALTERED MENTAL STATUS, UNSPECIFIED Status: Acute (3) Acute kidney injury superimposed on CKD Code(s): N17.9 - ACUTE KIDNEY FAILURE, UNSPECIFIED; N18.9 - CHRONIC KIDNEY DISEASE, UNSPECIFIED Status: Acute (4) Acute respiratory failure with hypoxia Code(s): J96.01 - ACUTE RESPIRATORY FAILURE WITH HYPOXIA Status: Acute (5) Pneumonia due to COVID-19 virus Code(s): U07.1 - COVID-19; J12.89 - OTHER VIRAL PNEUMONIA Status: Acute (6) HTN (hypertension) Code(s): I10 - ESSENTIAL (PRIMARY) HYPERTENSION Status: Chronic Qualifiers: Hypertension type: essential hypertension Qualified Code(s): I10 - Essential (primary) hypertension - Plan Plan: intensive care unit critical-care consultation, recommendations a patient tenuous pulmonary status on BiPAP, may require intubation if clinically deteriorates Pulmonary status with improvement on maximum medical therapy agitated at times, though improved with Precedex blood pressure control blood sugar control D5 for some nutritional support patient's mental status is limiting the ability to swallow oral medications NG tube is not an option while he is on the BiPAP, will make a seal not possible G.I. prophylaxis DVT prophylaxis
[2019-07-14] MEDS: Terazosin HCl 5 MG CAP PO SCH (19:33)
[2019-07-14 23:02] LABS: Base Excess (BEa) -0.9 mEq/L (-2.0 to +3.0); CO2 Tension 30.8 mmHg (35.0-45.0); Calcium, Ionized 1.16 mmol/L (1.12-1.30); Hemoglobin (Hb) 11.4 g/dL (14.0-18.0); Potassium - ABG Lab 4.01 mmol/L (3.70-5.30); pH, Arterial 7.47 (7.35-7.45)
[2019-07-14 23:04] LABS: O2 Tension (PaO2), arterial 56.4 mmHg (> 70.0); Puncture Site R RADIAL
[2019-07-15 03:57] LABS: #Lymphocytes 0.9 thou/uL (1.20-3.40); #Monocytes 0.3 thou/uL (0.11-0.59); %Basophils 0.2 % (0.0-1.0); %Eosinophils 0.5 % (0.0-10.0); %Lymphocytes 12.9 % (21.0-51.0); %Neutrophils 82.4 % (42.0-75.0); Hemoglobin 11.4 g/dL (14.0-18.0); Mean Corpuscular HGB CONC 32.4 g/dL (32.0-36.0); Mean Corpuscular Hemoglobin 30.2 pg (27.0-31.0); Mean Corpuscular Volume 93.4 fL (78.0-98.0); Mean Platelet Volume 9.4 fL (7.4-10.4); Platelet Count 202 thou/uL (130-400); RBC Distribution Width 15.2 % (11.5-14.5); Red Blood Cell (RBC) Count 3.77 mill/uL (4.70-6.10); White Blood Cell (WBC) Count 7.2 thou/uL (4.8-10.8)
[2019-07-15 04:19] LABS: ALT (SGPT) 14 U/L (8-55); AST (SGOT) 18 U/L (5-34); Alkaline Phosphatase 62 U/L (40-110); Anion Gap 11 mmol/L (10-20); BUN (Urea Nitrogen) 79 mg/dL (8.4-25.7); Bilirubin, Total 1.3 mg/dL (0.2-1.2); Calc. Creatinine Clearance 43 mL/min (70-130); Carbon Dioxide 25 mmol/L (23-31); Chloride 109 mmol/L (98-107); Estimated GFR-MDRD 26; Globulin 3.2 g/dL (2.4-3.5); Glucose 169 mg/dL (83-110); Protein, Total 6.2 g/dL (5.8-8.1); Sodium 141 mmol/L (136-145)
[2019-07-15] MEDS: methylPREDNISolone Sod Succ 40 MG VIAL IVP SCH ×4 (05:26→23:03)
[2019-07-15] MEDS: Insulin Regular 300 UNITS/3 ML VIAL SC PRN ×3 (05:29→17:24)
[2019-07-15] MEDS: Ipratropium Oral Inhaler INH SCH ×4 (07:52→18:37)
[2019-07-15] MEDS: Mometasone 100 MCG/PUFF (1 INHALER) INH SCH ×2 (07:53→18:37)
[2019-07-15] MEDS: Famotidine/PF 20 mg/2ml Vial SLOW IVP SCH (09:12)
[2019-07-15] MEDS ORDERED: hydrALAZINE 20 MG/ML VIAL SLOW IVP PRN (09:28)
[2019-07-15] MEDS: Amlodipine 10 MG TAB PO SCH (09:40)
[2019-07-15] MEDS: Clopidogrel Bisulfate 75 MG TAB PO SCH (09:41)
[2019-07-15] MEDS: Apixaban 5 MG TAB PO SCH (09:41)
[2019-07-15] MEDS: Potassium Chloride 10 MEQ TAB PO SCH (09:41)
[2019-07-15] MEDS: Terazosin HCl 1 MG CAP PO SCH (09:42)
--- NOTE | 2019-07-15 09:48 | PRG ---
DATE OF SERVICE: 07/15/2019 TIME SPENT: 35 minutes Critical Care time. SUBJECTIVE: The patient remains in the CCU on BiPAP. He is on a Precedex drip. He has really had no changes in the last 48 hours. OBJECTIVE: VITAL SIGNS: His temperature is 101.1, pulse 66, blood pressure 144/70, 24-hour intake 1309, output 2550. HEENT: Unremarkable. NECK: No JVD. LUNGS: Poor air movement. CARDIAC: S1 and S2. Regular. ABDOMEN: Soft. EXTREMITIES: No edema. DIAGNOSTIC STUDIES: His chest x-ray shows some clearing compared to yesterday. LABORATORY DATA: White blood cell count 7.2, hematocrit 35.2, and platelet count 202. Sodium 141, potassium 4, chloride 109, CO2 of 25, BUN 79, and creatinine 2.4, glucose 169. ASSESSMENT: 1. COVID-19 pneumonia with acute hypoxic respiratory failure, requiring mechanical ventilation. 2. Status post administration of convalescent plasma, IL-6 inhibitor. 3. The patient did not receive remdesivir because of renal failure. 4. Currently on corticosteroids. PLAN: Continue supportive care with BiPAP, Precedex. I will change his Eliquis to Lovenox because he is unable to take oral medications at this time. I will go ahead and stop the Geodon Precedex and Ativan as needed for sedation. Unfortunately, we have not seen much improvement with current measures and I suspect he will probably succumb to this in the long run. Job ID: [id number]
[2019-07-15] MEDS ORDERED: Enoxaparin Sodium 40 MG/0.4 ML SYRINGE SC SCH (10:15)
--- NOTE | 2019-07-15 11:03 | RAD ---
PORTABLE CHEST 1 VIEW: Date: 07/15/2019 Time: 0518 hours HISTORY: Pneumonia. Positive COVID test results. COMPARISON: Previous day. FINDINGS: The heart size is normal. The lungs are well expanded with patchy infiltrations in the lower lung fie lds. No pneumothoraces or pleural effusions seen. IMPRESSION: Stable exam. POS: OFF
--- NOTE | 2019-07-15 14:13 | PDOC.EVN ---
Event Note - Event Note Event Note: To safe PPE I did not personally physically examine the patient, non billable note only. Patient is on appropriate maximal medical therapy. Pulmonary/ CC on case, recommendations appreciated. Chart reviewed, medications reviewed, vital signs reviewed. Prognosis is poor for this patient. I reviewed the chart to see if there is next of kin who I can call to address his categorization status, currently listed as full code. I could not find anything listed aside from [facility] where [facility] is a chronic [facility]. I will ask for input from the palliative care team to see if we can help track down some family who can make medical decisions for this patient. Unfortunately despite maximal medical therapy I do think this patient will succumb to Covid 19.
[2019-07-15] MEDS: Dextrose 5% in Water 1,000 ML IV SCH (17:13)
[2019-07-15] MEDS ORDERED: Acetaminophen 650 MG Suppository PR PRN (17:49)
[2019-07-15] MEDS: Terazosin HCl 5 MG CAP PO SCH (19:27)
[2019-07-15] MEDS: Enoxaparin Sodium 40 MG/0.4 ML SYRINGE SC SCH (19:28)
--- NOTE | 2019-07-15 20:49 | CON ---
DATE OF CONSULTATION: 07/15/2019 REASON FOR CONSULTATION: COVID-19 pneumonia. HISTORY OF PRESENT ILLNESS: A 73-year-old inmate at [facility], who has a history of COPD, hypertension, chronic hep C, presumably treated prior CVA who went to [facility] Emergency Department with worsening dyspnea and fever. On arrival, he was hypoxemic and was placed on 100% non-rebreather and a chest x- ray showed multifocal infiltrates. He was given broad-spectrum antimicrobial coverage, Lovenox and transferred to [facility]. On arrival BP 106/64, pulse 88 , O2 saturations were 93 with high-flow nasal cannula, temperature 97.6 and it is not clear what the duration of symptoms before he was transferred to the emergency room at [facility]. Initial exam with the patient ill-appearing, tachypneic, confused. Neck was supple. Chest with diminished air flow bilaterally with wheezes and few inspiratory crackles. The heart exam was not described on admission. The abdomen appears soft and nontender, not distended and the initial findings included a white cell count 12,000, hemoglobin 10, MCV 91, platelets 133, 13% bands, and 30% lymphocytes. D-dimer is 2.08, pH 7.46, pCO2 21, pO2 52 on the 25th. The creatinine was initially 2.66. Liver profile normal. Albumin 3.0. The patient had a positive COVID test detected on admission and he has been seen by Dr. Agarwal. He is currently on a BiPAP mask and one set of blood cultures from [place] revealed likely contaminant with coagulase-negative Staphylococcus. The patient has been treated with plasma and IL6 inhibitor and he is not a candidate for remdesivir. He continues in the hospital here in the ICU. He is not intubated. He is on a BiPAP mask and his temperature has decreased, although he is on corticosteroids at the moment. He is also on Lovenox. Currently, the patient is obtunded, not able to provide any history or review of symptoms, has not had diarrhea. PAST MEDICAL HISTORY: Includes hypertension, COPD, chronic hep C, uncertain history of treatment, chronic kidney disease stage 3 prior CVA, BPH. PAST SURGICAL HISTORY: Appendectomy. ALLERGIES: CEPHALOSPORINS WITH RASH. FAMILY HISTORY: Not available. SOCIAL HISTORY: [facility] inmate, prior smoking. PHYSICAL EXAMINATION: VITAL SIGNS: T-max 98.1, blood pressure 140/60, pulse, respirations 23, O2 saturation 92% to 95%. His bladder temperature today was 101.53, so there is a discrepancy between the measurements obtained probably due to the type of temperature measurement. SKIN: Areas of abrasion in the abdominal area probably related to fall. LYMPH: He has no lymphadenopathy. He keeps his eyes closed. His eye movements are conjugate, though. Sclerae are white. Pupils are about 2 mm and reactive. Has a BiPAP mask, which was not removed during the exam, so I could not properly evaluate his oral cavity. LUNGS: With coarse breath sounds, but symmetric distribution. HEART: S1, S2 diminished heart sounds. ABDOMEN: Not distended or tender. No ascites. No bladder distention. He has an indwelling Andrade catheter. EXTREMITIES: No joint inflammatory activity. Trace edema in lower extremities. He moves extremities, but does not follow commands. Pulses 1+ in dorsalis pedis. He withdraws on stimulation of the plantar aspect of his feet. He is obtunded, does not interact with the examiner, does not follow commands. LABORATORY DATA: The trends indicate stability of the creatinine at 2.43. The latest value and D-dimer measured a few days ago was 2.08 and the ferritin last measured was on the at 2300. Last chest x-ray is from this morning and it demonstrates normal heart size, well-expanded lungs and patchy infiltrations in lower lung dai. ASSESSMENT: 1. Chronic obstructive pulmonary disease. 2. Hypertension. 3. Prior hepatitis C, uncertain history of treatment. 4. COVID-19 pneumonia, status post convalescent plasma and tocilizumab administration on arrival. Still having a rough course with severe to critical Covid pneumonia. We will continue monitoring his inflammatory markers and D- dimer over time and to help assess progress. It is not clear the duration of illness in this case. He must have been sick for quite a few days before arrival at [facility], so he arrived there on with at least probably 7 to 8 days of illness. At this stage of the game, usually the viral replication is less of a problem and the aftermath of the infection with the inflammatory process is the main component. He has already received convalescent plasma and tocilizumab and from now on let us hope that he will stabilize and avoid intubation as well as the other complications associated with COVID particularly multiorgan failure, hypotension and worsening renal dysfunction and so on. The administration of corticosteroids is somewhat controversial and still a subject of study and there are various approaches. Typically it is saved for patients with more advanced illness in the inflammatory stage. Job ID: [id number] MTDD
[2019-07-16 04:24] LABS: #Lymphocytes 0.9 thou/uL (1.20-3.40); #Monocytes 0.2 thou/uL (0.11-0.59); #Neutrophils 4.9 thou/uL (1.40-6.50); %Basophils 0.1 % (0.0-1.0); %Eosinophils 0.2 % (0.0-10.0); %Lymphocytes 14.5 % (21.0-51.0); %Monocytes 3.5 % (0.0-10.0); %Neutrophils 81.7 % (42.0-75.0); Hemoglobin 11.4 g/dL (14.0-18.0); Mean Corpuscular HGB CONC 32.7 g/dL (32.0-36.0); Mean Corpuscular Hemoglobin 30.8 pg (27.0-31.0); Mean Platelet Volume 8.9 fL (7.4-10.4); Platelet Count 142 thou/uL (130-400); RBC Distribution Width 15.3 % (11.5-14.5); Red Blood Cell (RBC) Count 3.69 mill/uL (4.70-6.10)
[2019-07-16 04:45] LABS: ALT (SGPT) 12 U/L (8-55); AST (SGOT) 16 U/L (5-34); Albumin 2.7 g/dL (3.4-4.8); Alkaline Phosphatase 49 U/L (40-110); Anion Gap 10 mmol/L (10-20); BUN (Urea Nitrogen) 80 mg/dL (8.4-25.7); Bilirubin, Total 1.3 mg/dL (0.2-1.2); Calc. Creatinine Clearance 46 mL/min (70-130); Calcium 7.8 mg/dL (7.8-10.44); Carbon Dioxide 25 mmol/L (23-31); Chloride 112 mmol/L (98-107); Estimated GFR-MDRD 28; Globulin 3.2 g/dL (2.4-3.5); Glucose 171 mg/dL (83-110); Potassium 4.3 mmol/L (3.5-5.1); Protein, Total 5.9 g/dL (5.8-8.1); Sodium 143 mmol/L (136-145)
[2019-07-16] MEDS: methylPREDNISolone Sod Succ 40 MG VIAL IVP SCH ×3 (05:22→17:55)
[2019-07-16] MEDS: Mometasone 100 MCG/PUFF (1 INHALER) INH SCH ×2 (05:23→17:26)
[2019-07-16] MEDS: Ipratropium Oral Inhaler INH SCH ×4 (07:39→17:27)
--- NOTE | 2019-07-16 08:03 | RAD ---
EXAM: CHEST ONE VIEW HISTORY: Positive COVID. Pneumonia. Follow-up evaluation. COMPARISON: 07/15/2019 FINDINGS: Cardiac silhouette is magnified by projection and patient rotation. Interstitial densities are again seen at each lung base and to a lesser extent in the midlung zones. No consolidation or definite pleural effusion is appreciated. No other interval change. IMPRESSION: Bilateral interstitial opacities predominantly in the midlung zones and at each lung base not signifi cantly changed when compared to the prior study. Findings are suggestive of bilateral infectious process and possibly atypical infectious process. Viral pneumonitis in the correct clinical scenario is also a differential consideration. Follow-up to complete resolution is recommended.
--- NOTE | 2019-07-16 08:39 | PRG ---
DATE OF SERVICE: 07/16/2019 SUBJECTIVE: Mr. Jameson is continuing to have fever. He remains on the BiPAP. He is encephalopathic. He is also on a very low dose of Precedex, but has not received anything else. OBJECTIVE: VITAL SIGNS: His temperature is 101.7, pulse 61, blood pressure 130/71. 24-hour intake 1360, output 1625. HEENT: Unremarkable. NECK: No adenopathy or JVD. LUNGS: Coarse rhonchi. CARDIOVASCULAR: S1, S2 irregular. ABDOMEN: Soft. EXTREMITIES: No edema. LABORATORY DATA: White blood cell count is 6, hematocrit 34.7, and platelet count 142. Sodium 143, potassium 4.3, chloride 112, CO2 of 25, BUN 80, creatinine 2.3, glucose 171. His x-ray shows continued clearing. ASSESSMENT: 1. COVID-19 pneumonia with acute hypoxic respiratory failure requiring mechanical ventilation. 2. Continued fever indicating continued cytokine surge. 3. Currently on corticosteroids. PLAN: I am going to go ahead and give him a second dose of the IL-6 inhibitor. He is not a candidate for remdesivir. He has had convalescent serum transfused. He will continue on low-dose steroids. He is not weanable from BiPAP at this time. 35 minutes of critical care time. Job ID: [id number]
[2019-07-16] MEDS: Enoxaparin Sodium 40 MG/0.4 ML SYRINGE SC SCH ×2 (08:53→20:41)
[2019-07-16] MEDS: Famotidine/PF 20 mg/2ml Vial SLOW IVP SCH (08:53)
[2019-07-16] MEDS: Insulin Regular 300 UNITS/3 ML VIAL SC PRN ×3 (08:59→17:56)
[2019-07-16] MEDS: Clopidogrel Bisulfate 75 MG TAB PO SCH (09:10)
[2019-07-16] MEDS: Potassium Chloride 10 MEQ TAB PO SCH (09:10)
[2019-07-16] MEDS: Amlodipine 10 MG TAB PO SCH (09:10)
[2019-07-16] MEDS: Terazosin HCl 1 MG CAP PO SCH (09:11)
[2019-07-16] MEDS: Dextrose 5% in Water 1,000 ML IV SCH (12:14)
[2019-07-16] MEDS ORDERED: Tocilizumab 400 MG in Sodium Chloride 0.9% 80 ML IV SCH (13:15)
--- NOTE | 2019-07-16 15:08 | PDOC.HOSPP ---
- Subjective Encounter Date: 07/16/19 Encounter Time: 12:00 Subjective: is on bipap, not oriented - Objective Vital Signs & Weight: Vital Signs (12 hours) Pulse Pulse Ox 07/16/19 14:19 60 07/16/19 10:44 70 07/16/19 09:10 71 07/16/19 08:00 94 L 07/16/19 07:38 71 07/16/19 03:25 63 Weight Weight 246 lb 7.629 oz Most Recent Monitor Data Heart Rate from ECG 72 NIBP 134/77 NIBP BP-Mean 96 Respiration from ECG 28 SpO2 91 I&O: 07/15/19 07/16/19 07/17/19 06:59 06:59 06:59 Intake Total 1309.4 1360.3 Output Total 2550 1625 305 Balance -1240.6 -264.7 -305 Result Diagrams: 07/16/19 04:00 07/16/19 04:00 Additional Labs: Accuchecks 07/16/19 07/16/19 07/15/19 12:21 09:03 21:28 POC Glucose 161 H 157 H 182 H 07/15/19 17:26 POC Glucose 167 H Hospitalist ROS - Medication Medications: Active Medications Generic Name Dose Route Start Last Admin Trade Name Freq PRN Reason Stop Dose Admin Acetaminophen 1,000 mg 07/09/19 13:36 07/09/19 21:22 Tylenol PO 1,000 mg Q6H PRN Administration Mild Pain (1-3) Amlodipine Besylate 10 mg 07/10/19 09:00 07/16/19 09:10 Norvasc PO Not Given DAILY [facility] Clopidogrel Bisulfate 75 mg 07/10/19 09:00 07/16/19 09:10 Plavix PO Not Given DAILY [facility] Enoxaparin Sodium 40 mg 07/15/19 21:00 07/16/19 08:53 Lovenox SC 40 mg 0900,2100 CORNELIO Administration Famotidine 20 mg 07/11/19 09:00 07/16/19 08:53 Pepcid SLOW IVP 20 mg DAILY CORNELIO Administration Amiodarone HCl 450 mg/ 259 mls @ 0 mls/hr 07/09/19 21:15 07/13/19 20:37 Miscellaneous Medication 1 IVPB 259 mls each/ Dextrose/Water INF CORNELIO Administration Protocol As Directed Dexmedetomidine HCl 400 mcg/ 100 mls @ 0 mls/hr 07/13/19 20:45 07/15/19 17:21 Sodium Chloride IVPB 100 mls INF CORNELIO Administration Protocol Per Protocol Dextrose/Water 1,000 mls @ 50 mls/hr 07/14/19 08:15 07/16/19 12:14 D5w IV 1,000 mls .Q20H CORNELIO Administration Insulin Human Regular 0 units 07/14/19 08:09 07/16/19 12:17 Humulin R SC 2 unit .MODERATE SLIDING SC PRN Administration Moderate Correctional Scale Ipratropium [place] 2 puff 07/09/19 15:00 07/16/19 14:18 Atrovent Hfa INH Not Given QID-RT CORNELIO Methylprednisolone Sodium Succinate 20 mg 07/11/19 12:00 07/16/19 12:12 Solu-Medrol IVP 20 mg Q6HR CORNELIO Administration Mometasone Furoate 100 mcg 07/09/19 18:30 07/16/19 05:23 Asmanex Hfa 100 Mcg INH Not Given BID-RT CORNELIO Potassium Chloride 10 meq 07/10/19 09:00 07/16/19 09:10 Klor-Con 10 PO Not Given DAILY CORNELIO Sodium Chloride 10 ml 07/09/19 21:00 07/16/19 12:13 Flush - Normal Saline IVF 10 ml Q12HR CORNELIO Administration Terazosin HCl 5 mg 07/09/19 21:00 07/15/19 19:27 Hytrin PO Not Given HS CORNELIO Terazosin HCl 2 mg 07/10/19 09:00 07/16/19 09:11 Hytrin PO Not Given QAM CORNELIO - Exam General Appearance: ill appearing Eye: PERRL, anicteric sclera ENT: no oropharyngeal lesions, dry oral mucosa Neck: supple, symmetric Heart: no murmur, no gallops Respiratory: no wheezes, normal chest expansion, rhonchi Gastrointestinal: soft, non-tender, non-distended, normal bowel sounds Extremities: no cyanosis, no edema Neurological: cranial nerve grossly intact, no new deficit Hosp A/P (1) Pneumonia due to COVID-19 virus Code(s): U07.1 - COVID-19; J12.89 - OTHER VIRAL PNEUMONIA Status: Acute (2) Acute respiratory failure with hypoxia Code(s): J96.01 - ACUTE RESPIRATORY FAILURE WITH HYPOXIA Status: Acute (3) AMS (altered mental status) Code(s): R41.82 - ALTERED MENTAL STATUS, UNSPECIFIED Status: Acute Qualifiers: Altered mental status type: somnolence Qualified Code(s): R40.0 - Somnolence (4) Acute kidney injury superimposed on CKD Code(s): N17.9 - ACUTE KIDNEY FAILURE, UNSPECIFIED; N18.9 - CHRONIC KIDNEY DISEASE, UNSPECIFIED Status: Acute (5) Sepsis Code(s): A41.9 - SEPSIS, UNSPECIFIED ORGANISM Status: Acute Qualifiers: Sepsis acute organ dysfunction status: with acute organ dysfunction Severe sepsis acute organ dysfunction type: acute respiratory failure Acute respiratory failure type: with hypoxia Severe sepsis shock status: without septic shock (6) HTN (hypertension) Code(s): I10 - ESSENTIAL (PRIMARY) HYPERTENSION Status: Chronic Qualifiers: Hypertension type: essential hypertension Qualified Code(s): I10 - Essential (primary) hypertension - Plan is on bipap, will get another dose of IL-6 inhibitor, on steroids and lovenox bid, has recieved convalescent plasma No remdesivir due to lan continue amiodarone, norvasc, plavix, terazosin, iv fluids 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 hemostable prognosis guarded to poor
--- NOTE | 2019-07-16 15:25 | PRG ---
DATE OF SERVICE: 07/16/2019 SUBJECTIVE: Mr. Jameson is still in the ICU. He is still on the BiPAP, encephalopathic and no diarrhea. OBJECTIVE: VITAL SIGNS: Temperature of 101.8 temperature before it was 98.4, O2 saturations are 94 with a BiPAP. GENERAL: Exam shows the patient to be a little bit drowsy. HEENT: He will not establish eye contact with examiner. LUNGS: With a few crackles and scattered areas. HEART: S1 and S2. Regular rate. ABDOMEN: Soft, not distended. LABORATORY DATA: White cell count 6.0, hemoglobin 11.4, platelets 142. D-dimer greater than 20. Creatinine 2.32, which is close to his baseline. CRP 1.69 and ferritin 1114, which is down from admission. ASSESSMENT AND DISCUSSION: Chronic obstructive pulmonary disease, hypertension, prior hep C, unclear history of treatment. COVID-19 pneumonia with convalescent plasma and tocilizumab administration x1 and still not doing very well. He may receive another dose of tocilizumab. In connective tissue disorders, the maximum recommended single dose is 800 mg, so he has received 400 mg and I guess it did reasonable thing to do. We would like to have data supporting the use of medication, but will have new studies being carried out, probably soon have some preliminary data to guide us. Job ID: [id number] MTDD
[2019-07-16] MEDS: Terazosin HCl 5 MG CAP PO SCH (19:43)
[2019-07-17] MEDS: methylPREDNISolone Sod Succ 40 MG VIAL IVP SCH ×4 (00:12→17:03)
[2019-07-17] MEDS: Dextrose 5% in Water 1,000 ML IV SCH (03:26)
[2019-07-17 04:09] LABS: #Lymphocytes 0.9 thou/uL (1.20-3.40); #Monocytes 0.3 thou/uL (0.11-0.59); #Neutrophils 5.2 thou/uL (1.40-6.50); %Basophils 0.1 % (0.0-1.0); %Eosinophils 0.2 % (0.0-10.0); %Lymphocytes 14.3 % (21.0-51.0); %Monocytes 4.7 % (0.0-10.0); %Neutrophils 80.7 % (42.0-75.0); Hemoglobin 11.7 g/dL (14.0-18.0); Mean Corpuscular HGB CONC 33.6 g/dL (32.0-36.0); Mean Corpuscular Hemoglobin 31.1 pg (27.0-31.0); Mean Corpuscular Volume 92.6 fL (78.0-98.0); Platelet Count 150 thou/uL (130-400); RBC Distribution Width 15.4 % (11.5-14.5); Red Blood Cell (RBC) Count 3.75 mill/uL (4.70-6.10); White Blood Cell (WBC) Count 6.5 thou/uL (4.8-10.8)
[2019-07-17 04:33] LABS: ALT (SGPT) 10 U/L (8-55); AST (SGOT) 15 U/L (5-34); Albumin 2.6 g/dL (3.4-4.8); Alkaline Phosphatase 45 U/L (40-110); Anion Gap 12 mmol/L (10-20); BUN (Urea Nitrogen) 78 mg/dL (8.4-25.7); Bilirubin, Total 1.2 mg/dL (0.2-1.2); Calc. Creatinine Clearance 48 mL/min (70-130); Calcium 7.5 mg/dL (7.8-10.44); Carbon Dioxide 23 mmol/L (23-31); Chloride 112 mmol/L (98-107); Estimated GFR-MDRD 30; Glucose 185 mg/dL (83-110); Potassium 4.7 mmol/L (3.5-5.1); Protein, Total 5.6 g/dL (5.8-8.1); Sodium 142 mmol/L (136-145)
[2019-07-17] MEDS: Ipratropium Oral Inhaler INH SCH ×4 (07:25→20:29)
[2019-07-17] MEDS: Mometasone 100 MCG/PUFF (1 INHALER) INH SCH ×2 (07:25→20:29)
--- NOTE | 2019-07-17 09:01 | RAD ---
PORTABLE CHEST: Date: 07/17/2019 HISTORY: Positive COVID pneumonia. FINDINGS: Heart size within normal limits. The ground-glass opacities in the lung dai are similar to the jamee or examination. IMPRESSION: Stable exam. POS: [facility]
--- NOTE | 2019-07-17 09:23 | PRG ---
DATE OF SERVICE: 07/17/2019 35 minutes of critical care time. SUBJECTIVE: The patient remains on noninvasive ventilation. He is now not moving his right arm. OBJECTIVE: VITAL SIGNS: Temperature 100.4, pulse 57, and blood pressure 121/61. 24-hour intake 1370, output 1248. HEENT: Unremarkable except the BiPAP mask. NECK: No JVD. LUNGS: Clear anteriorly. CARDIOVASCULAR: S1 and S2. Regular. ABDOMEN: Soft. EXTREMITIES: No edema. NEUROLOGIC: I can get withdrawal with all extremities except for the right arm. He is very hesitant to follow commands. His x-ray shows bilateral scant infiltrates. Overall, the x-ray does not look that bad. LABORATORY DATA: White blood cell count 6.5, hematocrit 34.7, and platelet count . His D-dimer is greater than 20. Sodium 142, potassium 4.7, chloride 112, CO2 of 23, BUN 78, creatinine 2.2, and glucose 185. ASSESSMENT: 1. The patient has COVID-19 pneumonia, now with symptomatology suggestive of his stroke. 2. Acute hypoxic respiratory failure, requiring mechanical ventilation. PLAN: 1. We will try to minimize his sedation. At some point, he will probably need a CT of the head, although I do not know how would change our management at this time. 2. He did receive another dose of Actemra yesterday. He has received convalescent plasma and is not a candidate for remdesivir. His prognosis is quite poor for survival. Need to discuss DNR status. This may take a two attending DNR. Job ID: [id number]
[2019-07-17] MEDS: Clopidogrel Bisulfate 75 MG TAB PO SCH (09:56)
[2019-07-17] MEDS: Enoxaparin Sodium 40 MG/0.4 ML SYRINGE SC SCH ×2 (09:56→20:29)
[2019-07-17] MEDS: Amlodipine 10 MG TAB PO SCH (09:56)
[2019-07-17] MEDS: Potassium Chloride 10 MEQ TAB PO SCH (09:56)
[2019-07-17] MEDS: Famotidine/PF 20 mg/2ml Vial SLOW IVP SCH (09:57)
[2019-07-17] MEDS: Terazosin HCl 1 MG CAP PO SCH (09:57)
[2019-07-17] MEDS: Insulin Regular 300 UNITS/3 ML VIAL SC PRN (09:58)
[2019-07-17] MEDS ORDERED: Tocilizumab 400 MG in Sodium Chloride 0.9% 80 ML IV SCH (11:00)
--- NOTE | 2019-07-17 12:57 | PDOC.HOSPP ---
- Subjective Encounter Date: 07/17/19 Encounter Time: 09:30 Subjective: is on bipap, not in distress - Objective Vital Signs & Weight: Vital Signs (12 hours) Pulse Pulse Ox 07/17/19 10:18 57 L 07/17/19 09:56 68 07/17/19 07:57 52 L 07/17/19 07:26 68 07/17/19 07:00 96 07/17/19 02:17 61 Weight Weight 246 lb 7.629 oz Most Recent Monitor Data Heart Rate from ECG 66 NIBP 128/83 NIBP BP-Mean 98 Respiration from ECG 23 SpO2 96 I&O: 07/16/19 07/17/19 07/18/19 06:59 06:59 06:59 Intake Total 1360.3 1370.8 Output Total 1625 1248 245 Balance -264.7 122.8 -245 Result Diagrams: 07/17/19 03:30 07/17/19 03:30 Additional Labs: Accuchecks 07/17/19 07/16/19 07:38 18:13 POC Glucose 169 H 155 H Hospitalist ROS - Medication Medications: Active Medications Generic Name Dose Route Start Last Admin Trade Name Freq PRN Reason Stop Dose Admin Acetaminophen 1,000 mg 07/09/19 13:36 07/09/19 21:22 Tylenol PO 1,000 mg Q6H PRN Administration Mild Pain (1-3) Amlodipine Besylate 10 mg 07/10/19 09:00 07/17/19 09:56 Norvasc PO Not Given DAILY [facility] Clopidogrel Bisulfate 75 mg 07/10/19 09:00 07/17/19 09:56 Plavix PO Not Given DAILY [facility] Enoxaparin Sodium 40 mg 07/15/19 21:00 07/17/19 09:56 Lovenox SC 40 mg 0900,2100 CORNELIO Administration Famotidine 20 mg 07/11/19 09:00 07/17/19 09:57 Pepcid SLOW IVP 20 mg DAILY CORNELIO Administration Amiodarone HCl 450 mg/ 259 mls @ 0 mls/hr 07/09/19 21:15 07/13/19 20:37 Miscellaneous Medication 1 IVPB 259 mls each/ Dextrose/Water INF CORNELIO Administration Protocol As Directed Dexmedetomidine HCl 400 mcg/ 100 mls @ 0 mls/hr 07/13/19 20:45 07/17/19 03:26 Sodium Chloride IVPB 100 mls INF CORNELIO Administration Protocol Per Protocol Dextrose/Water 1,000 mls @ 50 mls/hr 07/14/19 08:15 07/17/19 03:26 D5w IV 1,000 mls .Q20H CORNELIO Administration Insulin Human Regular 0 units 07/14/19 08:09 07/17/19 09:58 Humulin R SC 2 unit .MODERATE SLIDING SC PRN Administration Moderate Correctional Scale Ipratropium [place] 2 puff 07/09/19 15:00 07/17/19 10:17 Atrovent Hfa INH Not Given QID-RT CORNELIO Methylprednisolone Sodium Succinate 20 mg 07/11/19 12:00 07/17/19 12:52 Solu-Medrol IVP 20 mg Q6HR CORNELIO Administration Mometasone Furoate 100 mcg 07/09/19 18:30 07/17/19 07:25 Asmanex Hfa 100 Mcg INH Not Given BID-RT CORNELIO Potassium Chloride 10 meq 07/10/19 09:00 07/17/19 09:56 Klor-Con 10 PO Not Given DAILY CORNELIO Sodium Chloride 10 ml 07/09/19 21:00 07/17/19 09:57 Flush - Normal Saline IVF 10 ml Q12HR CORNELIO Administration Terazosin HCl 5 mg 07/09/19 21:00 07/16/19 19:43 Hytrin PO Not Given HS CORNELIO Terazosin HCl 2 mg 07/10/19 09:00 07/17/19 09:57 Hytrin PO Not Given QAM CORNELIO - Exam General Appearance: ill appearing Eye: anicteric sclera ENT: normocephalic atraumatic, dry oral mucosa Neck: supple, no JVD Heart: RRR Respiratory: no wheezes, normal chest expansion Gastrointestinal: soft, non-distended, normal bowel sounds Extremities: no cyanosis, no edema Neurological: cranial nerve grossly intact Hosp A/P (1) Pneumonia due to COVID-19 virus Code(s): U07.1 - COVID-19; J12.89 - OTHER VIRAL PNEUMONIA Status: Acute (2) Acute respiratory failure with hypoxia Code(s): J96.01 - ACUTE RESPIRATORY FAILURE WITH HYPOXIA Status: Acute (3) AMS (altered mental status) Code(s): R41.82 - ALTERED MENTAL STATUS, UNSPECIFIED Status: Acute Qualifiers: Altered mental status type: somnolence Qualified Code(s): R40.0 - Somnolence (4) Acute kidney injury superimposed on CKD Code(s): N17.9 - ACUTE KIDNEY FAILURE, UNSPECIFIED; N18.9 - CHRONIC KIDNEY DISEASE, UNSPECIFIED Status: Acute (5) Sepsis Code(s): A41.9 - SEPSIS, UNSPECIFIED ORGANISM Status: Acute Qualifiers: Sepsis acute organ dysfunction status: with acute organ dysfunction Severe sepsis acute organ dysfunction type: acute respiratory failure Acute respiratory failure type: with hypoxia Severe sepsis shock status: without septic shock (6) HTN (hypertension) Code(s): I10 - ESSENTIAL (PRIMARY) HYPERTENSION Status: Chronic Qualifiers: Hypertension type: essential hypertension Qualified Code(s): I10 - Essential (primary) hypertension - Plan is on bipap, steroids and lovenox bid, has recieved IL-inhibitors and convalescent plasma No remdesivir due to lan continue amiodarone, norvasc, plavix, terazosin, iv fluids 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 hemostable prognosis guarded to poor
--- NOTE | 2019-07-17 18:29 | PRG ---
DATE OF SERVICE: 07/17/2019 SUBJECTIVE: Mr. Jameson is in the ICU. He is a bit more alert, but still does not interact with the examiner, does not follow commands. OBJECTIVE: VITAL SIGNS: His temperature has been normal over the past 2 days. BP 140/80, O2 saturations 94, and breathing at 25 times per minute. He is with a BiPAP mask at 50 L/minute. NEUROLOGIC: Left gaze preference, right hemiparesis noted. LUNGS: Symmetric air entry. HEART: S1 and S2, regular rate. ABDOMEN: Soft. Not distended or tender. No ascites. No bladder distention. LABORATORY DATA: His white cell count is 6.5, hemoglobin 11.7, platelets 150, with 80% neutrophils. The D-dimer went up to 20, and he was given another dose of tocilizumab today. Creatinine is at 2.2, which has improved. CRP yesterday 1.69 and ferritin was 1114. Chest x-ray with ground-glass opacities, similar to prior exam. ASSESSMENT AND DISCUSSION: Chronic obstructive pulmonary disease; hypertension; prior hepatitis C, unclear history of treatment; COVID-19 pneumonia with convalescent plasma and tocilizumab administration. Tocilizumab has been given second time today because of his persisting signs of inflammatory change. He may have had a CVA now in the left hemispheric distribution and eventually will need an imaging study. He has been in the hospital for the past 8 days, and before that, it is not clear the duration of his symptoms, so the overall duration of illness is not precisely set at this point in time. Job ID: [id number]
[2019-07-17] MEDS: Terazosin HCl 5 MG CAP PO SCH (20:30)
[2019-07-18] MEDS: methylPREDNISolone Sod Succ 40 MG VIAL IVP SCH ×5 (00:49→23:26)
[2019-07-18 04:11] LABS: #Monocytes 0.4 thou/uL (0.11-0.59); #Neutrophils 6.7 thou/uL (1.40-6.50); %Basophils 0.2 % (0.0-1.0); %Eosinophils 0.2 % (0.0-10.0); %Lymphocytes 12.7 % (21.0-51.0); %Monocytes 5.1 % (0.0-10.0); %Neutrophils 81.8 % (42.0-75.0); Mean Corpuscular HGB CONC 33.6 g/dL (32.0-36.0); Mean Corpuscular Hemoglobin 31.3 pg (27.0-31.0); Mean Corpuscular Volume 93.1 fL (78.0-98.0); Mean Platelet Volume 9.4 fL (7.4-10.4); Platelet Count 151 thou/uL (130-400); RBC Distribution Width 15.4 % (11.5-14.5); Red Blood Cell (RBC) Count 3.84 mill/uL (4.70-6.10); White Blood Cell (WBC) Count 8.2 thou/uL (4.8-10.8)
[2019-07-18 04:34] LABS: ALT (SGPT) 9 U/L (8-55); AST (SGOT) 16 U/L (5-34); Albumin 2.6 g/dL (3.4-4.8); Alkaline Phosphatase 46 U/L (40-110); Anion Gap 11 mmol/L (10-20); BUN (Urea Nitrogen) 94 mg/dL (8.4-25.7); Bilirubin, Total 1.2 mg/dL (0.2-1.2); Calc. Creatinine Clearance 53 mL/min (70-130); Calcium 7.6 mg/dL (7.8-10.44); Carbon Dioxide 23 mmol/L (23-31); Chloride 112 mmol/L (98-107); Estimated GFR-MDRD 33; Glucose 185 mg/dL (83-110); Potassium 4.4 mmol/L (3.5-5.1); Protein, Total 5.6 g/dL (5.8-8.1); Sodium 142 mmol/L (136-145)
[2019-07-18] MEDS: Ipratropium Oral Inhaler INH SCH ×4 (07:30→18:27)
[2019-07-18] MEDS: Mometasone 100 MCG/PUFF (1 INHALER) INH SCH ×2 (07:30→18:44)
--- NOTE | 2019-07-18 08:21 | PRG ---
DATE OF SERVICE: 07/18/2019 35 minutes of critical care time. SUBJECTIVE: The patient remains on BiPAP. He has been taken off the Precedex. From a neurologic standpoint, I can get him to follow commands with his feet and move his left arm. He is aphasic, cannot move his right arm. This suggest a left MCA distribution stroke. OBJECTIVE: VITAL SIGNS: Pulse 79, blood pressure 138/98, temperature 99.0, O2 saturation 98%. HEENT: Unremarkable. NECK: No adenopathy or JVD. CHEST: Clear. CARDIAC: S1, S2, irregular. ABDOMEN: Soft. EXTREMITIES: No edema. LABORATORY DATA: White blood cell count 8.2, hematocrit 35.8, and platelet count 151. Sodium 142, potassium 4.4, chloride 112, CO2 of 23, BUN 94, creatinine 2.0, and glucose 185. His x-ray looks about the same. ASSESSMENT: 1. Overall, his clinical picture suggest a left MCA distribution stroke from COVID-19 infection. 2. COVID-19 pneumonia with acute hypoxic respiratory failure. PLAN: 1. He has been made DNR. He has received convalescent serum and has received Actemra. His overall prognosis for functional recovery is poor because he is at risk for spreading the infection. He has not been taken down to CT yet. I do not think getting a CT scan is necessarily going to change our management. 2. We will initiate tube feeds as he is starting to get very dry. Job ID: [id number]
[2019-07-18] MEDS: Clopidogrel Bisulfate 75 MG TAB PO SCH (08:23)
[2019-07-18] MEDS: Amlodipine 10 MG TAB PO SCH (08:23)
[2019-07-18] MEDS: Enoxaparin Sodium 40 MG/0.4 ML SYRINGE SC SCH ×2 (08:23→21:07)
[2019-07-18] MEDS: Potassium Chloride 10 MEQ TAB PO SCH (08:24)
[2019-07-18] MEDS: Famotidine/PF 20 mg/2ml Vial SLOW IVP SCH (08:24)
--- NOTE | 2019-07-18 08:53 | RAD ---
PORTABLE CHEST: INDICATION: Pneumonia. COMPARISON: 07/17/2019. FINDINGS/IMPRESSION: No confluent consolidation. There are ground-glass opacities seen in the lung dai which are stabl e from yesterday. No acute interval change. POS: AGW
[2019-07-18] MEDS: Terazosin HCl 1 MG CAP PO SCH (09:00)
[2019-07-18] MEDS: Insulin Regular 300 UNITS/3 ML VIAL SC PRN ×3 (12:09→21:55)
--- NOTE | 2019-07-18 13:07 | PDOC.HOSPP ---
- Subjective Encounter Date: 07/18/19 Encounter Time: 08:30 Subjective: he pulled his ng tube out this am, its being replaced now moves left extremities well does not talk or follow verbal stimuli - Objective Vital Signs & Weight: Vital Signs (12 hours) Pulse Pulse Ox 07/18/19 08:23 75 07/18/19 08:00 98 07/18/19 07:13 75 07/18/19 01:55 65 Weight Weight 246 lb 7.629 oz Most Recent Monitor Data Heart Rate from ECG 84 NIBP 136/82 NIBP BP-Mean 100 Respiration from ECG 22 SpO2 97 I&O: 07/17/19 07/18/19 07/19/19 06:59 06:59 06:59 Intake Total 1370.8 728 Output Total 1248 1560 200 Balance 122.8 -832 -200 Result Diagrams: 07/18/19 03:30 07/18/19 03:30 Additional Labs: Accuchecks 07/18/19 07/17/19 07/17/19 10:27 17:21 13:02 POC Glucose 172 H 183 H 147 H Hospitalist ROS - Medication Medications: Active Medications Generic Name Dose Route Start Last Admin Trade Name Freq PRN Reason Stop Dose Admin Acetaminophen 1,000 mg 07/09/19 13:36 07/09/19 21:22 Tylenol PO 1,000 mg Q6H PRN Administration Mild Pain (1-3) Amlodipine Besylate 10 mg 07/10/19 09:00 07/18/19 08:23 Norvasc PO 10 mg DAILY CORNELIO Administration Clopidogrel Bisulfate 75 mg 07/10/19 09:00 07/18/19 08:23 Plavix PO 75 mg DAILY CORNELIO Administration Enoxaparin Sodium 40 mg 07/15/19 21:00 07/18/19 08:23 Lovenox SC 40 mg 0900,2100 CORNELIO Administration Famotidine 20 mg 07/11/19 09:00 07/18/19 08:24 Pepcid SLOW IVP 20 mg DAILY CORNELIO Administration Hydralazine HCl 20 mg 07/15/19 09:28 07/17/19 20:35 Apresoline SLOW IVP 20 mg Q6H PRN Administration SBP GREATER THAN 160 Amiodarone HCl 450 mg/ 259 mls @ 0 mls/hr 07/09/19 21:15 07/13/19 20:37 Miscellaneous Medication 1 IVPB 259 mls each/ Dextrose/Water INF CORNELIO Administration Protocol As Directed Dexmedetomidine HCl 400 mcg/ 100 mls @ 0 mls/hr 07/13/19 20:45 07/17/19 20:50 Sodium Chloride IVPB 100 mls INF CORNELIO Administration Protocol Per Protocol Dextrose/Water 1,000 mls @ 50 mls/hr 07/14/19 08:15 07/17/19 03:26 D5w IV 1,000 mls .Q20H CORNELIO Administration Insulin Human Regular 0 units 07/14/19 08:09 07/18/19 12:09 Humulin R SC 2 unit .MODERATE SLIDING SC PRN Administration Moderate Correctional Scale Ipratropium [place] 2 puff 07/09/19 15:00 07/17/19 20:29 Atrovent Hfa INH Not Given QID-RT CORNELIO Methylprednisolone Sodium Succinate 20 mg 07/11/19 12:00 07/18/19 12:05 Solu-Medrol IVP 20 mg Q6HR CORNELIO Administration Mometasone Furoate 100 mcg 07/09/19 18:30 07/17/19 20:29 Asmanex Hfa 100 Mcg INH Not Given BID-RT CORNELIO Potassium Chloride 10 meq 07/10/19 09:00 07/18/19 08:24 Klor-Con 10 PO 10 meq DAILY CORNELIO Administration Sodium Chloride 10 ml 07/09/19 21:00 07/18/19 08:25 Flush - Normal Saline IVF 10 ml Q12HR CORNELIO Administration Terazosin HCl 5 mg 07/09/19 21:00 07/17/19 20:30 Hytrin PO Not Given HS CORNELIO Terazosin HCl 2 mg 07/10/19 09:00 07/17/19 09:57 Hytrin PO Not Given QAM CORNELIO - Exam General Appearance: ill appearing Eye: anicteric sclera ENT: no oropharyngeal lesions, dry oral mucosa Neck: supple, no JVD Heart: RRR, no gallops Respiratory: no wheezes, no rales, rhonchi Gastrointestinal: soft, non-tender, non-distended, normal bowel sounds Extremities: no cyanosis, no edema Neurological: hemiplegia Neurological - other findings: right hemiplegia, likely aphasia Hosp A/P (1) Pneumonia due to COVID-19 virus Code(s): U07.1 - COVID-19; J12.89 - OTHER VIRAL PNEUMONIA Status: Acute (2) Acute respiratory failure with hypoxia Code(s): J96.01 - ACUTE RESPIRATORY FAILURE WITH HYPOXIA Status: Acute (3) AMS (altered mental status) Code(s): R41.82 - ALTERED MENTAL STATUS, UNSPECIFIED Status: Acute Qualifiers: Altered mental status type: somnolence Qualified Code(s): R40.0 - Somnolence (4) Acute kidney injury superimposed on CKD Code(s): N17.9 - ACUTE KIDNEY FAILURE, UNSPECIFIED; N18.9 - CHRONIC KIDNEY DISEASE, UNSPECIFIED Status: Acute (5) Sepsis Code(s): A41.9 - SEPSIS, UNSPECIFIED ORGANISM Status: Acute Qualifiers: Sepsis acute organ dysfunction status: with acute organ dysfunction Severe sepsis acute organ dysfunction type: acute respiratory failure Acute respiratory failure type: with hypoxia Severe sepsis shock status: without septic shock (6) HTN (hypertension) Code(s): I10 - ESSENTIAL (PRIMARY) HYPERTENSION Status: Chronic Qualifiers: Hypertension type: essential hypertension Qualified Code(s): I10 - Essential (primary) hypertension (7) CVA (cerebral vascular accident) Code(s): I63.9 - CEREBRAL INFARCTION, UNSPECIFIED Status: Acute Qualifiers: CVA mechanism: unspecified Qualified Code(s): I63.9 - Cerebral infarction, unspecified - Plan is on bipap, steroids and lovenox bid, has recieved IL-inhibitors and convalescent plasma No remdesivir due to lan continue amiodarone, norvasc, plavix, terazosin, iv fluids 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 hemostable prognosis guarded to poor may transfer anytime to [facility] if accepted, has been cleared by for transfer.
[2019-07-18] MEDS: Dextrose 5% in Water 1,000 ML IV SCH ×2 (16:40→23:23)
[2019-07-18] MEDS: Terazosin HCl 5 MG CAP PO SCH (21:13)
[2019-07-18] MEDS: Amiodarone 450 MG, Admixture Fee 1 EACH in Dextrose 5% in Water 250 ML IVPB SCH (23:21)
[2019-07-19] MEDS: Insulin Regular 300 UNITS/3 ML VIAL SC PRN ×4 (00:23→17:18)
[2019-07-19 04:11] LABS: #Lymphocytes 0.8 thou/uL (1.20-3.40); #Monocytes 0.3 thou/uL (0.11-0.59); #Neutrophils 9.4 thou/uL (1.40-6.50); %Basophils 0.1 % (0.0-1.0); %Eosinophils 0.2 % (0.0-10.0); %Lymphocytes 7.2 % (21.0-51.0); %Neutrophils 89.5 % (42.0-75.0); Hemoglobin 12.3 g/dL (14.0-18.0); Mean Corpuscular HGB CONC 34.5 g/dL (32.0-36.0); Mean Corpuscular Hemoglobin 31.8 pg (27.0-31.0); Mean Corpuscular Volume 92.4 fL (78.0-98.0); Mean Platelet Volume 9.4 fL (7.4-10.4); Platelet Count 171 thou/uL (130-400); RBC Distribution Width 15.4 % (11.5-14.5); Red Blood Cell (RBC) Count 3.86 mill/uL (4.70-6.10); White Blood Cell (WBC) Count 10.5 thou/uL (4.8-10.8)
[2019-07-19 04:36] LABS: ALT (SGPT) 14 U/L (8-55); AST (SGOT) 15 U/L (5-34); Albumin 2.7 g/dL (3.4-4.8); Alkaline Phosphatase 46 U/L (40-110); Anion Gap 11 mmol/L (10-20); BUN (Urea Nitrogen) 98 mg/dL (8.4-25.7); Bilirubin, Total 1.3 mg/dL (0.2-1.2); Calc. Creatinine Clearance 47 mL/min (70-130); Calcium 7.7 mg/dL (7.8-10.44); Carbon Dioxide 22 mmol/L (23-31); Chloride 113 mmol/L (98-107); Estimated GFR-MDRD 29; Globulin 2.9 g/dL (2.4-3.5); Glucose 219 mg/dL (83-110); Potassium 4.3 mmol/L (3.5-5.1); Protein, Total 5.6 g/dL (5.8-8.1); Sodium 142 mmol/L (136-145)
[2019-07-19] MEDS: methylPREDNISolone Sod Succ 40 MG VIAL IVP SCH (05:09)
[2019-07-19] MEDS: Terazosin HCl 1 MG CAP PO SCH (08:20)
[2019-07-19] MEDS: Potassium Chloride 10 MEQ TAB PO SCH (08:20)
[2019-07-19] MEDS: Clopidogrel Bisulfate 75 MG TAB PO SCH (08:21)
[2019-07-19] MEDS: Enoxaparin Sodium 40 MG/0.4 ML SYRINGE SC SCH (08:21)
[2019-07-19] MEDS: Famotidine/PF 20 mg/2ml Vial SLOW IVP SCH (08:21)
[2019-07-19] MEDS: Amlodipine 10 MG TAB PO SCH (08:21)
[2019-07-19 08:22] VITALS: BP 129/91
[2019-07-19] MEDS: Dextrose 5% in Water 1,000 ML IV SCH (08:23)
[2019-07-19] MEDS ORDERED: Enoxaparin Sodium 40 MG/0.4 ML SYRINGE SC SCH (09:20)
--- NOTE | 2019-07-19 09:37 | PRG ---
DATE OF SERVICE: 07/19/2019 TIME SPENT: 35 minutes of critical care time. SUBJECTIVE: The patient remains on BiPAP in the CCU. OBJECTIVE: VITAL SIGNS: Temperature is 98.6, pulse 102, blood pressure 129/91. 24-hour intake 1248, output 935. NEUROLOGIC: He remains aphasic. He can move his right arm. Everything else seems to be functional. HEENT: Unremarkable. NECK: No JVD. CHEST: Clear anteriorly. CARDIAC: S1, S2. Irregularly irregular, now back on amiodarone drip. ABDOMEN: Soft. EXTREMITIES: No profound edema. LABORATORY DATA: White blood cell count 10.5, hematocrit 35.6, and platelet count 171. Sodium 142, potassium 4.3, chloride of 113, CO2 of 22, BUN 98, creatinine 2.2, and glucose 219. ASSESSMENT: 1. COVID-19 with pneumonia. 2. Acute respiratory failure, requiring mechanical ventilation. 3. Atrial fibrillation with right ventricle response. 4. Likely left middle cerebral artery distribution stroke from COVID-19 infection. PLAN: 1. We will go ahead and increase his anticoagulation to a 60 mg q.12 hours. 2. Continue amiodarone. 3. Try to wean the BiPAP off. He could probably be trial of high-flow nasal cannula today. 4. Wean steroids. 5. Transfer to [facility] when bed available. Prognosis is poor. Job ID: [id number]
[2019-07-19 10:04] VITALS: TEMP 98.6
--- NOTE | 2019-07-19 10:20 | RAD ---
PORTABLE CHEST: Date: 07/19/2019 HISTORY: Pneumonia follow-up. COMPARISON: 07/18/2019. FINDINGS/IMPRESSION: Ground-glass opacities have been described in both lower lungs, which are again seen and do not appea r significantly changed. POS: AGW
[2019-07-19] MEDS ORDERED: Amiodarone 450 MG, Admixture Fee 1 EACH in Dextrose 5% in Water 250 ML IVPB SCH (12:15)
[2019-07-19 12:50] VITALS: BMI 30.3
--- NOTE | 2019-07-19 16:00 | PDOC.HOSPP ---
- Subjective Encounter Date: 07/19/19 Encounter Time: 10:15 Subjective: is on bipap in icu not in distress - Objective Vital Signs & Weight: Vital Signs (12 hours) Temp Pulse BP Pulse Ox 07/19/19 14:41 123 H 07/19/19 08:21 100 129/91 H 07/19/19 08:00 98.6 F 96 07/19/19 07:19 87 07/19/19 04:00 98.4 F Weight Admit Weight 248 lb Weight 230 lb 2.601 oz Most Recent Monitor Data Heart Rate from ECG 113 NIBP 135/51 NIBP BP-Mean 79 Respiration from ECG 27 SpO2 95 I&O: 07/18/19 07/19/19 07/20/19 06:59 06:59 06:59 Intake Total 728 1248.7 130 Output Total 1560 935 305 Balance -832 313.7 -175 Result Diagrams: 07/19/19 03:49 07/19/19 03:49 Additional Labs: Accuchecks 07/19/19 07/19/19 07/18/19 12:21 05:20 23:52 POC Glucose 225 H 210 H 193 H 07/18/19 07/18/19 07/18/19 21:25 18:04 12:13 POC Glucose 184 H 228 H 170 H Hospitalist ROS - Medication Medications: Active Medications Generic Name Dose Route Start Last Admin Trade Name Freq PRN Reason Stop Dose Admin Acetaminophen 1,000 mg 07/09/19 13:36 07/09/19 21:22 Tylenol PO 1,000 mg Q6H PRN Administration Mild Pain (1-3) Amlodipine Besylate 10 mg 07/10/19 09:00 07/19/19 08:21 Norvasc PO 10 mg DAILY CORNELIO Administration Clopidogrel Bisulfate 75 mg 07/10/19 09:00 07/19/19 08:21 Plavix PO 75 mg DAILY CORNELIO Administration Famotidine 20 mg 07/11/19 09:00 07/19/19 08:21 Pepcid SLOW IVP 20 mg DAILY CORNELIO Administration Hydralazine HCl 20 mg 07/15/19 09:28 07/17/19 20:35 Apresoline SLOW IVP 20 mg Q6H PRN Administration SBP GREATER THAN 160 Dexmedetomidine HCl 400 mcg/ 100 mls @ 0 mls/hr 07/13/19 20:45 07/17/19 20:50 Sodium Chloride IVPB 100 mls INF CORNELIO Administration Protocol Per Protocol Dextrose/Water 1,000 mls @ 50 mls/hr 07/14/19 08:15 07/19/19 08:23 D5w IV 1,000 mls .Q20H CORNELIO Administration Amiodarone HCl 450 mg/ 259 mls @ 0 mls/hr 07/19/19 12:15 07/19/19 12:53 Miscellaneous Medication 1 IVPB 259 mls each/ Dextrose/Water INF CORNELIO Administration Protocol As Directed Insulin Human Regular 0 units 07/14/19 08:09 07/19/19 12:29 Humulin R SC 4 unit .MODERATE SLIDING SC PRN Administration Moderate [employer] Scale Ipratropium [place] 2 puff 07/09/19 15:00 07/18/19 18:27 Atrovent Hfa INH 2 puff QID-RT CORNELIO Administration Mometasone Furoate 100 mcg 07/09/19 18:30 07/18/19 18:44 Asmanex Hfa 100 Mcg INH 100 mcg BID-RT CORNELIO Administration Potassium Chloride 10 meq 07/10/19 09:00 07/19/19 08:20 Klor-Con 10 PO 10 meq DAILY CORNELIO Administration Sodium Chloride 10 ml 07/09/19 21:00 07/19/19 08:22 Flush - Normal Saline IVF 10 ml Q12HR CORNELIO Administration Terazosin HCl 5 mg 07/09/19 21:00 07/18/19 21:13 Hytrin PO 5 mg HS CORNELIO Administration Terazosin HCl 2 mg 07/10/19 09:00 07/19/19 08:20 Hytrin PO 2 mg QAM CORNELIO Administration - Exam General Appearance: ill appearing Eye: PERRL, anicteric sclera ENT: no oropharyngeal lesions, dry oral mucosa Neck: supple, no JVD Heart: no gallops, irregular Respiratory: no wheezes, no rales, rhonchi Gastrointestinal: soft, non-distended, normal bowel sounds Extremities: no cyanosis, no edema Neurological: cranial nerve grossly intact, hemiplegia Hosp A/P (1) Pneumonia due to COVID-19 virus Code(s): U07.1 - COVID-19; J12.89 - OTHER VIRAL PNEUMONIA Status: Acute (2) Acute respiratory failure with hypoxia Code(s): J96.01 - ACUTE RESPIRATORY FAILURE WITH HYPOXIA Status: Acute (3) AMS (altered mental status) Code(s): R41.82 - ALTERED MENTAL STATUS, UNSPECIFIED Status: Acute Qualifiers: Altered mental status type: somnolence Qualified Code(s): R40.0 - Somnolence (4) Acute kidney injury superimposed on CKD Code(s): N17.9 - ACUTE KIDNEY FAILURE, UNSPECIFIED; N18.9 - CHRONIC KIDNEY DISEASE, UNSPECIFIED Status: Acute (5) Sepsis Code(s): A41.9 - SEPSIS, UNSPECIFIED ORGANISM Status: Acute Qualifiers: Sepsis acute organ dysfunction status: with acute organ dysfunction Severe sepsis acute organ dysfunction type: acute respiratory failure Acute respiratory failure type: with hypoxia Severe sepsis shock status: without septic shock (6) HTN (hypertension) Code(s): I10 - ESSENTIAL (PRIMARY) HYPERTENSION Status: Chronic Qualifiers: Hypertension type: essential hypertension Qualified Code(s): I10 - Essential (primary) hypertension (7) CVA (cerebral vascular accident) Code(s): I63.9 - CEREBRAL INFARCTION, UNSPECIFIED Status: Acute Qualifiers: CVA mechanism: unspecified Qualified Code(s): I63.9 - Cerebral infarction, unspecified - Plan is on bipap, steroids and lovenox bid, has recieved IL-inhibitors and convalescent plasma No remdesivir due to lan continue amiodarone, norvasc, plavix, terazosin, iv fluids 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 hemostable prognosis guarded to poor may transfer anytime to [facility] if accepted, has been cleared by for transfer. D/w for afib/svt, will see him today.
[2019-07-19] MEDS ORDERED: Amiodarone 150 MG, Admixture Fee 1 EACH in Dextrose 5% in Water 100 ML IVPB SCH (16:15)
[2019-07-19] MEDS: Acetaminophen 500 MG TAB PO PRN (16:45)
[2019-07-19] MEDS ORDERED: Digoxin 0.5 MG/2 ML AMP SLOW IVP SCH (17:00)
--- NOTE | 2019-07-19 17:55 | CON ---
DATE OF CONSULTATION: 07/19/2019 REASON FOR CONSULTATION: Atrial fibrillation with RVR. HISTORY OF PRESENT ILLNESS: Mr. Jameson is a 73-year-old inmate who comes to the hospital for COVID-19 pneumonia. He is intubated and sedated, cannot give much history. Most of the history is taken from the chart. He has been treated for this. He also had what appears to be a stroke from this COVID pneumonia. He went into atrial fibrillation at some time ago. He has been on amiodarone drip. Heart rate is still difficult to control. PAST MEDICAL HISTORY: 1. Hypertension. 2. COPD. 3. Hepatitis C. 4. Anemia of chronic disease. 5. Chronic kidney disease, stage 3. 6. History of CVA. 7. BPH. PAST SURGICAL HISTORY: Appendectomy. OUTPATIENT MEDICATIONS: 1. Amlodipine. 2. Atenolol. 3. Atrovent. 4. Calcium carbonate. 5. Plavix 75 mg a day. 6. Flovent. 7. Lasix. 8. Potassium chloride. 9. Pravachol. 10. Terazosin. ALLERGIES: CEPHALOSPORINS. FAMILY HISTORY: Noncontributory. SOCIAL HISTORY: Incarcerated. No alcohol, tobacco, or drugs. REVIEW OF SYSTEMS: Unobtainable as he is intubated and sedated. PHYSICAL EXAMINATION: VITAL SIGNS: Temperature 98.6, pulse 113 to 120, blood pressure 135/51, temperature 99.0, respiratory rate 30, and saturating 92% on 50% FiO2. GENERAL: Sedated and intubated. The visit was done on telemedicine. So physical exam was not done due to the COVID-19. LABORATORY DATA: Laboratory work was reviewed. Hematology, coags, blood gas, chemistry, and toxicology were all reviewed. Creatinine 2.27, GFR of 29, normal potassium. ASSESSMENT: 1. COVID-19 pneumonia. 2. Atrial fibrillation with rapid ventricular response. 3. Acute cerebrovascular accident. PLAN: 1. Continue on amiodarone drip. 2. We will start digoxin IV dosage daily as we cannot slow him down any further with any beta blockers or calcium channel blockers as his blood pressure has actually come down to the 80s/50s. 3. Very poor long-term prognosis. 4. Severely ill and would not be unexpected. Job ID: [id number]
[2019-07-19] MEDS ORDERED: Sodium Chloride 0.9% 250 ML 250 ML IVPB PRN (18:33)
[2019-07-19] MEDS: Mometasone 100 MCG/PUFF (1 INHALER) INH SCH (19:58)
[2019-07-19] MEDS: Ipratropium Oral Inhaler INH SCH (19:58)
[2019-07-19] MEDS ORDERED: Enoxaparin Sodium 60 MG/0.6 ML SYRINGE SC SCH (21:00)
[2019-07-19] MEDS ORDERED: methylPREDNISolone Sod Succ 40 MG VIAL IVP SCH (21:00)
[2019-07-20] MEDS ORDERED: Digoxin 0.5 MG/2 ML AMP SLOW IVP SCH (09:00)
--- NOTE | 2019-07-20 09:19 | DIS ---
DATE OF ADMISSION: 07/09/2019 DATE OF : 07/19/2019 at 8.27 pm. PRIMARY CAUSE OF : Pending autopsy report if one is being done as he is a inmate. Preliminary causes include the following pending autopsy report for final cause of . 1. COVID-19 pneumonia with sepsis-11 days 2. Multiple organ failure-11 days 3. Acute respiratory failure with hypoxia-11 days. 4. Acute metabolic encephalopathy secondary to sepsis-11 days. 5. Acute kidney injury superimposed on chronic kidney disease likely stage three -11 days. SECONDARY CAUSE OF : History of cerebrovascular accident with left hemiparesis. Hypertension. PROCEDURES DONE DURING HOSPITALIZATION: Chest x-ray done on the day of admission showed bilateral small pleural effusions with bilateral lower lobe infiltrates. Blood cultures 1 of 2 grew coag-negative Staph aureus. Discharge H and H 12 and 35, platelet count 151, white count of 8 with 81% neutrophils, 12% lymphocytes. D- dimer was 2.08 on the 09 of July. On 07/16/2019, D-dimer was greater than 20. Blood gas done on the day of admission showed a pH of 7.46, pCO2 of 21, PO2 of 52. Discharge BUN and creatinine are 94 and 2.0. Serum bicarb 23, serum glucose 185, albumin is 2.6. Admitting BUN and creatinine were 52 and 2.6. Creatinine was 3.1 on the 10 of July. BNP 242. Ferritin 2373. CRP 1.69. INPATIENT CONSULTS: Dr. Agarwal for Pulmonology. Dr. Roberts for Infectious Disease. BRIEF COURSE DURING HOSPITALIZATION: The patient initially was transferred from [facility] for acute respiratory failure with hypoxia. He was on 100% non-rebreather on arrival. The patient is an inmate at [facility]. He was under COVID-19 droplet and airborne precautions on arrival. The patient's COVID-19 PCR came back positive. Prior to this, he was on IV antibiotics which was discontinued. He was given convalescent plasma and tocilizumab 400 mg one dose. Convalescent plasma was given on 07/10/2019, 240 mL and tocilizumab 400 mg was also given on the same day that is 07/10/2019. He was not given remdesivir due to acute kidney injury/ chronic kidney disease. He was initially placed on high-flow oxygen, then switched over to BiPAP. During the course of his stay, the patient became more obtunded likely due to underlying sepsis and multiorgan involvement with COVID-19. He likely has prior history of right hemiplegia with aphasia, which was not clear when he arrived, or if he sustained a cva due to covid 19 virus. More information on this needs to be obtained from the [facility] unit/autopsy. The patient was not safe to go down for a CAT scan or MRI due to him needing BiPAP with possible exposure of COVID-[address] scan department. He was already on Plavix and he was given 40 mg of subcu Lovenox twice daily initially and was increased to full dose [id number]. Mr. Jameson was also made DNAR during his hospitalization here with two MDs signing the DNAR consent forms due to multiple organ involvement with an underlying CVA with him requiring BiPAP and multifocal infiltrates with poor prognosis. On the 4th evening his blood pressure started to drop further despite fluid resuscitation. was also in and out of atrial fibrillation and supraventricular tachycardia. He breathed his last around 8.27pm on july 18. His body will be released to corrections department and possible autopsy. Job ID: [id number] MTDD
== END 2019-07-19 23:59 | disposition expired | DRG 871 ==
LOC: CCU 11:23
PROVIDERS: ADMIT Internal Medicine; ATTEND Internal Medicine
PROC: 8E0ZXY6 Isolation (ICD-10-PCS; principal; 2019-07-09)
PROC: 5A09557 Assistance with Respiratory Ventilation, Greater than 96 Consecutive Hours, Continuous Positive Airway Pressure (ICD-10-PCS; 2019-07-13)
DX: A41.89 Other specified sepsis (principal); U07.1 COVID-19; J96.01 Acute respiratory failure with hypoxia; G93.41 Metabolic encephalopathy; J12.89 Other viral pneumonia; I63.9 Cerebral infarction, unspecified; I13.0 Hypertensive heart and chronic kidney disease with heart failure and stage 1 through stage 4 chronic kidney disease, or unspecified chronic kidney disease; N17.9 Acute kidney failure, unspecified; I69.354 Hemiplegia and hemiparesis following cerebral infarction affecting left non-dominant side; R47.01 Aphasia; Z66 Do not resuscitate; B19.20 Unspecified viral hepatitis C without hepatic coma; N18.3 Chronic kidney disease, stage 3 (moderate); D63.1 Anemia in chronic kidney disease; N40.0 Benign prostatic hyperplasia without lower urinary tract symptoms; I48.91 Unspecified atrial fibrillation; E78.5 Hyperlipidemia, unspecified; J44.9 Chronic obstructive pulmonary disease, unspecified; Z88.1 Allergy status to other antibiotic agents; Z90.49 Acquired absence of other specified parts of digestive tract; Z87.891 Personal history of nicotine dependence; Z79.01 Long term (current) use of anticoagulants
CPT/HCPCS: 36415; 36416; 36430; 71045; 80053; 80202; 82728; 82805; 83880; 85007; 85025; 85027; 85379; 86140; 86850; 86900; 86901; 93005; 93010; 94660; 94664; J0282; J0360; J0456; J1160; J1650; J1815; J1940; J1956; J2060; J2920; J3262; J3370; J3486; J3490; J7030; J7050; J7070; P9047; S0028